=== PATIENT | female | born 1955 ===

== ENCOUNTER 2025-09-05 15:48 | Inpatient (IN) | payer MEDICARE, SELFPAY ==
[2025-09-05] VITALS (10 sets, daily range): BP systolic 110–131; BP diastolic 50–65; PULSE 72–121; RESP 16–22; TEMP 36.2–37.1; O2SAT 91–100; BMI 51.4; BMI 52.2
--- NOTE | ~2025-09-05 | CT_ITS ---
CLINICAL HISTORY: abdominal pain CT abdomen and pelvis without contrast Comparison: None provided Findings: Mild patchy bibasilar parenchymal densities. Cardiomegaly. Suggestion of very minimal liver surface nodularity. Spleen, adrenal glands, pancreas, are unremarkable. Cholecystectomy. No renal, ureteral or bladder calculi. No hydronephrosis. Mild bilateral perinephric fat stranding. Hysterectomy. Calcified but nonaneurysmal abdominal aorta. Nondistended stomach. Normal caliber small bowel. No obstruction. Colon appears unremarkable. Normal appendix. No free air. No free fluid. Few scattered borderline prominent bilateral inguinal lymph nodes. Moderate generalized body wall edema. Increased stranding throughout central abdominal mesentery. No acute osseous abnormality. No lytic or sclerotic osseous lesions. Moderate multilevel degenerative changes throughout visualized thoracolumbar spine. Small fat containing ventral abdominal hernia. Impression: 1. Moderately extensive body wall edema. Cellulitis is thought to be less likely however not completely excluded. 2. Suggestion of mild liver surface nodularity, suboptimally evaluated on this noncontrast exam however possibility of developing cirrhosis may be considered. Consider correlation with liver function tests. 3. Mild increased stranding throughout central abdominal mesentery likely edema possibly secondary to the above. 4. Cholecystectomy and hysterectomy. 5. Additional findings as above. This document has been electronically signed by: Juliann Dukes MD on 09/07/2025 11:14:02
--- NOTE | ~2025-09-05 | XR_ITS ---
EXAMINATION: XR CHEST CLINICAL INFORMATION: dyspnea, tachycardia COMPARISON: None available. TECHNIQUE: 2 views of the chest were obtained. FINDINGS: The lungs are symmetrically expanded. Central vascular prominence, interstitial prominence. No focal consolidation. No pneumothorax. No pleural effusions. Enlarged cardiomediastinal silhouette.. No acute osseous abnormalities. XR/XR chest 2V IMPRESSION: Vascular prominence and interstitial prominence suggesting mild pulmonary edema. Electronically signed by: Johnson Palm MD 09/05/2025 04:17 PM EDT
--- NOTE | 2025-09-05 15:55 | ED.GENADULT ---
HPI - General Adult General Chief complaint: Dyspnea Stated complaint: SOB; low oxygen level Time Seen by Provider: 09/05/25 16:32 History of Present Illness ED Provider: Dr. Bishop HPI narrative: 70 y/o F patient; PMH COPD on baseline 3L NC, CHF on Lasix 40mg daily, hx PE on eliquis, HTN, T2DM, HLD; presents from the ICU as a rapid response. The patient was visiting her daughter in the ICU when her oxygen ran out. She was found to be wheezing and tachycardic. Oxygen was in the low 70s. Transitioned to the emergency department for further evaluation. The patient otherwise denies: fever or chills, nausea/vomiting, diarrhea, chest pain. Reports a 22lb weight gain in the last 6 weeks. Increased lower extremity swelling. Flew from [place] last night to visit daughter in the ICU. Related Data Allergies Allergy/AdvReac Type Severity Reaction Status Date / Time No Known Allergies Allergy Verified 09/05/25 15:57 Review of Systems Review of Systems: Yes all other systems are reviewed and are negative [facility] Past Medical History Attestation statement: The following information was validated with the patient. Source: unable to obtain Social History Social History Do you have a plan to hurt others: No Plan Physical Exam ED Vital Signs: Vital Signs - 24 hr 09/05/25 15:52 09/05/25 16:57 09/05/25 17:22 Temperature 98.7 F Pulse Rate 120 H 121 H Respiratory Rate 22 H 22 H Blood Pressure 122/65 116/50 L Pulse Oximetry 98 Oxygen Delivery Method Nasal Cannula BMI result Body Mass Index 51.4 Patient is afebrile, tachycardic, normotensive Const General: cooperative HENMT Head: Yes normal to inspection and Yes atraumatic Eyes General: appearance normal, both eyes and all related structures Pupils: Equal, round and reactive pupils present EOM: EOMs intact bilaterally Neck Neck: Yes normal visual inspection, Yes supple and No tender Chest Chest palpation & inspection: normal inspection of the chest and normal palpation of entire chest wall Resp Other: Diminished bilaterally, faint end expiratory wheezing Cardio Other: tachycardia, regular rhythm, 2+ bilateral pitting edema in lower extremities GI Inspection: Yes normal to inspection, No Abdominal wall edema and No distended Palpation (GI): Soft to palpation, not firm, nontender, no guarding and not rigid Auscultation: normal bowel sounds Back/Spine/Pelvis Back: No back tenderness Neuro Cranial nerves: Yes Equal, round and reactive pupils present Course Course Course Narrative: This is a rapid medical exam performed by Yuliet White NP: Additional HPI, ROS, PE not included below will be deferred to primary provider. Patient is a 70y/o F with pmhx of COPD brought to the ED after rapid response was called. She was visiting her daughter in the ICU, O2 tank ran out. At the time of the RR, O2 sat reported to be 79%, improved to 99% on 3lpm. Complaining of epigastric pain and back pain. Plan: EKG, labs, CXR Reevaluation(s) Reevaluation #1: Requested patient be brought back to a room after receiving EKG. EKG independently interpreted by myself as ST 121BPM with + LBBB. No prior for comparison. Patient is tachycardic and tachypnic, but maintaining saturation on home 3L NC. CXR notable for mild pulmonary edema. Labs reviewed. No significant leukocytosis. Hgb 9, no baseline for comparison however MCV is 74.8, likely microcytic in nature. VBG is unremarkable without acidosis. por-BNP is quite elevated, no prior to compare to. Troponin 24.3, suspect demand. Magnesium 1.5, supplementing Cr 1.04. Placed on bronchodilator protocol. Provided 40mg IV Lasix. Plan: Admit to hospital Condition: Stable Medications Administered Generic Name Dose Route Start Last Admin Trade Name Freq PRN Reason Stop Dose Admin Magnesium Sulfate 2 gm in 50 mls @ 25 mls/hr 09/05/25 17:27 09/05/25 17:31 Magnesium Sulfate/H2o IV 09/05/25 19:26 25 mls/hr ONCE ONE Administration Discontinued Medications Generic Name Dose Route Start Last Admin Trade Name Freq PRN Reason Stop Dose Admin Albuterol Sulfate 5 mg/ 0 mg 09/05/25 16:45 09/05/25 16:49 Albuterol/Ipratropium 3 ml INHALE 09/05/25 16:46 3 each ONCE ONE Administration Furosemide 40 mg 09/05/25 16:52 09/05/25 17:22 Furosemide 40 Mg/4 Ml Vial IVPUSH 09/05/25 16:53 40 mg ONCE ONE Administration Protocol Medical Decision Making Lab Data 09/05/25 16:26 09/05/25 16:26 Labs: Lab Results 09/05/25 09/05/25 Range/Units 16:26 16:33 WBC 7.8 (4.8-10.8) X10*3/uL RBC 4.40 (4.20-5.50) X10*6/uL Hgb 9.0 L (12.0-16.0) g/dl Hct 32.9 L (37.0-47.0) % MCV 74.8 L (80.0-98.0) fL MCH 20.5 L (27.0-33.0) pg MCHC 27.4 L (31.0-35.0) g/dl RDW 21.2 H (11.0-16.0) % Plt Count 258 (160-400) X10*3/uL MPV 9.0 L (9.4-12.3) fL Immature Gran % (Auto) 0.4 (0.0-0.4) % Neut % (Auto) 75.0 H (45-73) % Lymph % (Auto) 12.1 L (20-40) % [place] % (Auto) 8.5 (2-11) % Eos % (Auto) 3.2 (0-4) % Baso % (Auto) 0.8 (0-2) % Lymph # (Auto) 0.9 L (1.2-4.9) X10*3/uL [place] # (Auto) 0.7 (0.1-1.2) X10*3/uL Eos # (Auto) 0.3 (0.0-0.4) X10*3/uL Baso # (Auto) 0.1 (0.0-0.2) X10*3/uL Abs Immat Gran (auto) 0.03 (0.00-0.03) X10*3/uL Absolute Neuts (auto) 5.9 (2.0-8.3) x10*3/uL Absolute Nucleated RBC 0.000 (0.0-0.012) X10*3/uL Nucleated RBC % (auto) 0.0 (0.0-0.2) /100WBC PT 17.4 H (10.9-12.4) SEC INR 1.5 H (0.9-1.1) VBG pH 7.40 (7.32-7.43) VBG pCO2 40 mmHg VBG pO2 57 mmHg VBG HCO3 25 (22-26) mmol/L VBG O2 Saturation 83.0 % VBG Base Excess 1.0 mmol/L Sodium 137 (135-145) mmol/L Potassium 4.5 (3.3-5.1) mmol/L Chloride 103 (96-108) mmol/L Carbon Dioxide 26 (22-29) mmol/L Anion Gap 13 (12-20) BUN 14 (9-16) mg/dL Creatinine 1.04 (0.5-1.4) mg/dL Estim Creat Clear Calc 62.0 Estimated GFR 52 Random Glucose 133 H (60-115) mg/dL Calcium 8.7 (8.4-10.2) mg/dL Magnesium 1.5 L (1.6-2.6) mg/dL Total Bilirubin 0.4 (0.0-1.0) mg/dL AST 18 (5-31) U/L ALT 6 (0-31) U/L Alkaline Phosphatase 92 (39-117) U/L Troponin I High Sens 24.3 H (<3.5-17.0) ng/L NT-Pro-B Natriuret Pep 4806.6 H (<300) pg/mL Total Protein 6.5 (6.5-8.0) g/dL Albumin 3.8 (3.5-5.0) g/dL Lipase 23 (8-78) U/L Radiology Impression Discussion of test interpretation with radiology: I have reviewed the radiologist's reading. Radiologist Impression: EXAMINATION: XR CHEST CLINICAL INFORMATION: dyspnea, tachycardia COMPARISON: None available. TECHNIQUE: 2 views of the chest were obtained. FINDINGS: The lungs are symmetrically expanded. Central vascular prominence, interstitial prominence. No focal consolidation. No pneumothorax. No pleural effusions. Enlarged cardiomediastinal silhouette.. No acute osseous abnormalities. XR/XR chest 2V IMPRESSION: Vascular prominence and interstitial prominence suggesting mild pulmonary edema. Electronically signed by: Johnson Palm MD 09/05/2025 04:17 PM EDT RP Critical Care Time Critical Care Time Critical Care Time: Yes Total Critical Care Time: 38 Attestation: Total critical care time: Approximately?38?minutes Due to a high probability of clinically significant, life threatening deterioration, the patient required my highest level of preparedness to intervene emergently and I personally spent this critical care time directly and personally managing the patient. This critical care time included obtaining a history; examining the patient; pulse oximetry; ordering and review of studies; arranging urgent treatment with development of a management plan; evaluation of patient's response to treatment; frequent reassessment; and, discussions with other providers. This critical care time was performed to assess and manage the high probability of imminent, life-threatening deterioration that could result in multi-organ failure. It was exclusive of separately billable procedures and treating other patients. Discharge Plan Discharge Clinical Impression: Congestive heart failure Patient Disposition: Admitted As Inpatient Print Language: Greenlandic
--- NOTE | 2025-09-05 15:58 | ECG_ITS ---
Test Reason : dyspnea, tachy Blood Pressure : */* mmHG Vent. Rate : 121 BPM Atrial Rate : 121 BPM P-R Int : 192 ms QRS Dur : 158 ms QT Int : 382 ms P-R-T Axes : * -57 65 degrees QTcB Int : 542 ms Sinus tachycardia Left axis deviation Left bundle branch block Abnormal ECG No previous ECGs available Referred By: Leni White Electronically Signed By: MARINE VALDIVIA MD
[2025-09-05 16:33] LABS: MANUAL DIFF FLAG NO
[2025-09-05 16:35] LABS: Hematocrit 32.9 % (37.0-47.0); Hemoglobin 9.0 g/dl (12.0-16.0); Imm Gran Abs Auto 0.03 X10*3/uL (0.00-0.03); Imm Gran Pct Auto 0.4 % (0.0-0.4); Lymphocytes Absolute Auto 0.9 X10*3/uL (1.2-4.9); Mean Corpuscular HGB Conc 27.4 g/dl (31.0-35.0); Mean Corpuscular Hemoglobin 20.5 pg (27.0-33.0); Mean Corpuscular Volume 74.8 fL (80.0-98.0); NRBC Abs Auto 0.000 X10*3/uL (0.0-0.012); NRBC Pct Auto 0.0 /100WBC (0.0-0.2); Platelet Count 258 X10*3/uL (160-400); Red Blood Count 4.40 X10*6/uL (4.20-5.50); White Blood Count 7.8 X10*3/uL (4.8-10.8)
[2025-09-05 16:37] LABS: Venous Blood Gas Refer to POC result
[2025-09-05 16:39] LABS: VBG HCO3 25 mmol/L (22-26); VBG O2 % Saturation 83.0 %
[2025-09-05 16:48] LABS: INTERNATIONAL NORM RATIO 1.5 (0.9-1.1); Prothrombin Time 17.4 SEC (10.9-12.4)
[2025-09-05] MEDS: Albuterol Sulfate 5 MG, Albuterol/Iprat 2.5/0.5MG 3 ML 3 ML INHALE (16:49)
[2025-09-05 16:54] LABS: NT Pro B Type Natriuretic Pept 4806.6 pg/mL (<300)
[2025-09-05 17:14] LABS: Troponin-I High Sensitivity 24.3 ng/L (<3.5-17.0)
[2025-09-05 17:22] LABS: Alanine Aminotransferase 6 U/L (0-31); Albumin Level 3.8 g/dL (3.5-5.0); Alkaline Phosphatase 92 U/L (39-117); Anion Gap 13 (12-20); Aspartate Amino Transferase 18 U/L (5-31); Blood Urea Nitrogen 14 mg/dL (9-16); Calcium 8.7 mg/dL (8.4-10.2); Carbon Dioxide 26 mmol/L (22-29); Chloride 103 mmol/L (96-108); Creatinine Clr Calc Pharmacy 62.0; Estimated Glomerular Filt Rate 52; Lipase 23 U/L (8-78); Magnesium 1.5 mg/dL (1.6-2.6); Potassium 4.5 mmol/L (3.3-5.1); Sodium 137 mmol/L (135-145); Total Protein 6.5 g/dL (6.5-8.0)
[2025-09-05] MEDS: Furosemide 40 MG/4 ML VIAL IVPUSH (17:22)
[2025-09-05] MEDS: Magnesium Sulfate/H2O 2 GM/50 ML PIGGYBACK IV (17:31)
--- NOTE | 2025-09-05 18:41 | PM.IMHP ---
History of Present Illness Date of Service: 09/05/25 Chief Complaint: shortness of breath 70-year-old female with a history of COPD (on baseline 3L nasal cannula), congestive heart failure (on Lasix 40 mg daily), prior pulmonary embolism (on Eliquis), hypertension, type 2 diabetes mellitus, and hyperlipidemia, presented as a rapid response while visiting her sick daughter in the ICU. Her oxygen supply ran out, and she was found to be wheezing, coughing, and tachycardic, with oxygen saturation of 78%. She was transferred to the emergency department for further evaluation after an [employer] STOCK CLERK The patient reported baseline shortness of breath but denied chest pain. She noted a 22-pound weight gain over the past six weeks and increased lower extremity swelling. Emergency department workup revealed sodium 133, magnesium 1.5, troponin I 24, pro-BNP 4806, and creatinine 1.004. Chest X-ray showed pulmonary edema. ECG demonstrated sinus tachycardia without acute ischemic changes. In the ED, she was treated with intravenous Lasix and magnesium replacement. Review of Systems Review of Systems: Constitutional:?No fever or chills reported Cardiovascular:?No chest pain, palpitations Respiratory:?Baseline shortness of breath, increased cough, wheezing GI:?No nausea, vomiting, or abdominal pain :?No dysuria Neuro:?No focal deficits Extremities:?Increased lower extremity swe Yes all other systems are reviewed and are negative [facility] Social History Household Members: Friend(s) Housing: House Patient Tobacco Use Status: Never used Tobacco Currently Displaying Signs/Symptoms of Drug Intoxication Withdrawal: No Have you been hit, kicked, punched, or otherwise hurt by someone within the past year? If so, by whom?: No Are you made to feel afraid or neglected: No Advance Directives: No Advance Directives Information Provided: Yes Do you have a plan to hurt others: No Plan Recently lost weight without trying: Yes How much weight loss: 14-23 pounds Eating poorly because of decreased appetite: No Nutrition screen score: 4 Patient : No service: No Meds Allergies Allergy/AdvReac Type Severity Reaction Status Date / Time No Known Allergies Allergy Verified 09/05/25 15:57 Active Medications: Current Medications Acetaminophen (Acetaminophen 325 Mg Tablet) 650 mg PO Q6H PRN PRN Reason: Pain, Mild 1-3,fever,headache Calcium Carbonate (Calcium Carbonate 750 Mg Tab.Chew) 750 mg PO Q4H PRN PRN Reason: Heartburn Enoxaparin Sodium (Enoxaparin Sodium 40 Mg/0.4 Ml Syringe) 40 mg SUBCUT DAILY [facility] Magnesium Sulfate (Magnesium Sulfate/H2o) 2 gm in 50 mls @ 25 mls/hr IV ONCE ONE Stop: 09/05/25 19:26 Last Admin: 09/05/25 17:31 Dose: 25 mls/hr Magnesium Hydroxide (Milk Of Magnesia 30 Ml Oral.Susp) 30 ml PO DAILY PRN PRN Reason: Constipation Melatonin (Melatonin 3 Mg Tablet) 6 mg PO BEDTIME PRN PRN Reason: Insomnia Ondansetron HCl (Ondansetron Hcl 4 Mg/2 Ml Vial) 4 mg IVPUSH Q8H PRN PRN Reason: Nausea and Vomiting Polyethylene Glycol (Polyethylene Glycol 3350 17 Gm Powd.Pack) 17 gm PO DAILY PRN PRN Reason: Constipation Sodium Chloride (0.9 % Sodium Chloride Flush 3 Ml Syringe) 3 ml IVFLUSH QSHIFT [facility] Home Medications ?Medication ?Instructions ?Recorded ?Confirmed ?Last Taken ?Type alprazolam 0.5 mg tablet (Xanax) 0.5 mg PO BID 09/05/25 09/05/25 09/05/25 History apixaban 5 mg tablet (Eliquis) 5 mg PO BID 09/05/25 09/05/25 09/05/25 History aspirin 81 mg tablet 81 mg PO DAILY 09/05/25 09/05/25 09/05/25 History furosemide 40 mg tablet (Lasix) 40 mg PO BID 09/05/25 09/05/25 09/05/25 History glimepiride 4 mg tablet 4 mg PO BID 09/05/25 09/05/25 09/05/25 History hydralazine 10 mg tablet 60 mg PO BID 09/05/25 09/05/25 09/05/25 History losartan 100 mg tablet 100 mg PO DAILY 09/05/25 09/05/25 09/05/25 History sertraline 25 mg tablet (Zoloft) 25 mg PO DAILY 09/05/25 09/05/25 09/05/25 History simvastatin 20 mg tablet 20 mg PO DAILY 09/05/25 09/05/25 09/05/25 History sitagliptin phosphate 50 1 tab PO BID 09/05/25 09/05/25 09/05/25 History mg-metformin 1,000 mg tablet (Sammie) Physical Exam Vital Signs and Narrative: Vital Signs: Last Vital Signs Temp 98 F 09/05/25 18:00 Pulse 91 09/05/25 18:00 Resp 21 H 09/05/25 18:00 BP 131/61 09/05/25 18:00 Pulse Ox 91 L 09/05/25 18:00 O2 Del Method Nasal Cannula 09/05/25 18:00 Oxygen Flow Rate 3 09/05/25 15:52 BMI result Body Mass Index 51.4 Const: Other: General:?Alert, in mild respiratory distress HEENT:?No JVD Cardiac:?Tachycardic, regular rhythm, no murmurs Respiratory:?Wheezing, decreased breath sounds, mildincreased work of breathing, rales at bases Abdomen:?Soft, non-tender Extremities:?2+ pitting edema bilateral lower extremities Neuro:?No focal deficits Results Labs 09/06/25 06:15 09/06/25 06:15 Labs: Laboratory Results - last 24 hr 09/05/25 09/05/25 16:26 16:33 MCV 74.8 L MCH 20.5 L MCHC 27.4 L RDW 21.2 H Plt Count 258 MPV 9.0 L Immature Gran % (Auto) 0.4 Neut % (Auto) 75.0 H Lymph % (Auto) 12.1 L [place] % (Auto) 8.5 Eos % (Auto) 3.2 Baso % (Auto) 0.8 Lymph # (Auto) 0.9 L [place] # (Auto) 0.7 Eos # (Auto) 0.3 Baso # (Auto) 0.1 Abs Immat Gran (auto) 0.03 Absolute Neuts (auto) 5.9 Absolute Nucleated RBC 0.000 Nucleated RBC % (auto) 0.0 PT 17.4 H INR 1.5 H VBG pH 7.40 VBG pCO2 40 VBG pO2 57 VBG HCO3 25 VBG O2 Saturation 83.0 VBG Base Excess 1.0 Anion Gap 13 Estim Creat Clear Calc 62.0 Estimated GFR 52 Random Glucose 133 H Calcium 8.7 Magnesium 1.5 L Total Bilirubin 0.4 AST 18 ALT 6 Alkaline Phosphatase 92 Troponin I High Sens 24.3 H NT-Pro-B Natriuret Pep 4806.6 H Total Protein 6.5 Albumin 3.8 Lipase 23 Imaging Radiologist's Impressions: Impressions Chest X-Ray 09/05/25 16:08 IMPRESSION: Vascular prominence and interstitial prominence suggesting mild pulmonary edema. Electronically signed by: Johnson Palm MD 09/05/2025 04:17 PM EDT RP Assessment and Plan (1) Congestive heart failure: Status: Acute Plan 70-year-old female with significant cardiopulmonary comorbidities presenting with acute hypoxemia, respiratory distress, and evidence of volume overload (weight gain, lower extremity edema, pulmonary edema on CXR, elevated pro-BNP). She also has electrolyte abnormalities (hyponatremia, hypomagnesemia) and an elevated troponin, likely secondary to demand ischemia in the setting of acute decompensated heart failure and hypoxemia. Plan: Acute on chronic hypoxemic respiratory failure d/t underlying copd and heart failure Supplemental oxygen to maintain SpO? > 92% Monitor for respiratory fatigue or need for higher-level respiratory support Acute decompensated heart failure--type unknown IV Lasix for diuresis, monitor urine output and electrolytes Daily weights, strict I/O Get echo tomorrow cardiology evaluation COPD no exacerbation Continue home inhalers or Nebs PRn Electrolyte abnormalities Magnesium replacement Monitor sodium and renal function Elevated troponin Likely demand ischemia; monitor for chest pain or ECG changes Cardiology consult if indicated DVT prophylaxis /historyo f PE Continue Eliquis Diabetes and hypertension management Continue home medications as appropriate once med rec done Monitor blood glucose and blood pressure, SSI Morbid obesity weight loss advise Code status Full code Disposition Admit to Med-tele DVT Prophylaxis: continue Eliquis for history of PE. If anticoagulation is held, initiate mechanical prophylaxis with sequential compression devices (SCDs). Code Status: Full code Indication for Admission: Acute hypoxemic respiratory failure and decompensated heart failure requiring intravenous diuresis, supplemental oxygen, and close monitoring will need at least 2 midnight stay Quality Stroke Does the patient have a stroke diagnosis?: No VTE Prior VTE?: Yes VTE Risk Level:: Medical - moderate - high VTE Device Contraindication: Treatment Not Indicated VTE Drug Contraindication: N/A - Med Ordered
--- NOTE | 2025-09-05 19:09 | PHA.MEDREC ---
Pharmacy Consult ? Medication Reconciliation Pharmacy has completed the medication reconciliation. Spoke to patient and family at bedside to confirm med list. Family states patient just got here from [place] and fill all her medications there. Patient had a list of medications with her. Utilized list from patient, however could not confirm with patient pharmacy. Patient states she had all her morning medications today.
[2025-09-05 21:08] LABS: Glucose, Whole Blood 146 mg/dL (60-115)
[2025-09-06] VITALS (9 sets, daily range): BP systolic 90–124; BP diastolic 51–60; PULSE 70–89; RESP 16–20; TEMP 36.1–37.2; O2SAT 93–100
[2025-09-06 06:45] LABS: MANUAL DIFF FLAG NO
[2025-09-06 06:52] LABS: Hematocrit 33.4 % (37.0-47.0); Hemoglobin 9.1 g/dl (12.0-16.0); Imm Gran Abs Auto 0.02 X10*3/uL (0.00-0.03); Imm Gran Pct Auto 0.3 % (0.0-0.4); Lymphocytes Absolute Auto 1.3 X10*3/uL (1.2-4.9); Mean Corpuscular HGB Conc 27.2 g/dl (31.0-35.0); Mean Corpuscular Hemoglobin 20.4 pg (27.0-33.0); Mean Corpuscular Volume 74.7 fL (80.0-98.0); NRBC Abs Auto 0.000 X10*3/uL (0.0-0.012); NRBC Pct Auto 0.0 /100WBC (0.0-0.2); Platelet Count 293 X10*3/uL (160-400); Red Blood Count 4.47 X10*6/uL (4.20-5.50); White Blood Count 7.5 X10*3/uL (4.8-10.8)
--- NOTE | 2025-09-06 07:00 | CA_ITS ---
Transthoracic Echocardiogram Patient (Last, First, Middle): William Carr, Gender: Female Date of : 1955 Age: 70 Procedure Date: 09/06/2025 Procedure Type: Transthoracic Echocardiogram Location: [facility] – [place] Height: 154.94 cm Weight: 125.19 kg BSA: 2.17 m2 Heart Rate: 78 bpm BP: 118 / 56 mmHg Cloth Finisher: ANA MARIA Referring MD: Casa Sandoval MD Mental Health Unit Lead Psychologist: Claus Collier MD Symptoms: heart failure Study Quality: Adequate w/Contrast ECG Rhythm: Sinus Conclusions: - 1. Mildly dilated LV with severely reduced LV ejection fraction at 30% with grade 2 diastolic dysfunction with mild LVH 2. Moderately dilated right-sided chambers with preserved RV systolic function 3. Moderate left atrial enlargement next 4. Cardiac valvular Dopplers within normal limits 5. Moderately elevated right ventricular systolic pressure with significantly elevated right atrial pressures Findings Procedure Information Contrast agent, definity, is being given per protocol without apparent complications. Left Ventricle Mildly increased left ventricular cavity size. There is mildly increased left ventricular wall thickness. The left ventricular systolic function is severely decreased. The visually estimated ejection fraction is between 25 30%. There is paradoxical septal motion consistent with a left bundle branch block. Spectral Doppler is indicative of a pseudonormal filling pattern. E/E prime ratio is >15, consistent with elevated filling pressures. Evidence suggests grade II (moderate) diastolic dysfunction. Right Ventricle Moderately increased right ventricular cavity size. There is normal right ventricular systolic function. Atria The left atrium is moderately dilated. Interatrial shunt cannot be excluded. The right atrium is moderately dilated. Aortic Valve The aortic valve structure and function is likely normal. There is no aortic valve stenosis. There is no aortic valve regurgitation. Mitral Valve Normal mitral valve structure and function. There is trace mitral valve regurgitation. There is no mitral valve stenosis. Pulmonic Valve The pulmonic valve is likely normal. There is no pulmonic valve regurgitation. Tricuspid Valve Likely normal tricuspid valve structure and function. There is mild tricuspid valve regurgitation. Significantly elevated right atrial pressure. Moderate pulmonary hypertension is present. Great Vessels The aorta was not well visualized. The pulmonary artery was not well visualized. Venous The inferior vena cava is moderately dilated and does not collapse with inspiration. Pericardium/Pleural The pericardium was not well visualized. Prior Study Comparison No prior study available for comparison. Measurements 2D Linear Measurements IVSd: 1.25 0.6-0.9/0.6-1.0 cm LVIDd: 5.96 3.9-5.3/4.2-5.9 cm LVIDd Index: 2.75 2.4-3.2/2.2-3.1 cm/m2 LVIDs: 5.17 2.0-3.6 cm LVPWd: 1.23 0.7-1.1 cm Ao Root: 2.90 2.1-3.5 cm LA Diam: 4.40 2.7-3.8/3.0-4.0 cm LAIDs Index: 2.03 1.5-2.3 cm/m2 LV Mass: 405.08 67-162/88-224 g LV Mass Index: 186.67 43-95/49-115 g/m2 LVOT Diam: 2.00 3.0+(-)1.3 cm 2D Systolic Function EF 4C: 28.20 >55% EF 2C: 27.10 >55% EF BiP: 26.20 >55% Mitral Valve MV VTI: 0.38 MV Pk Monty: 1.32 MV Mn Monty: 0.81 MV Pk Grad: 7.00 MV Mn Grad: 3.00 MV Pk E: 0.53 MV PK A: 1.14 MV Decel Time: 186.00 E/A: 0.50 E'Lateral: 7.62 E'Medial: 4.68 E/E' Med: 11.30 E/E' Lat: 7.00 PHT: 55.00 MVA PHT: 4.00 MVA Continuity: 1.80 [place]: 5.24 Aortic Valve AoV Pk Monty: 2.30 AoV Mn Monty: 1.55 AoV VTI: 0.47 AoV Pk Grad: 21.00 Aov Mn Grad: 11.00 FADI Cont.VTI: 1.46 LVOT LVOT Pk Monty: 1.04 LVOT Mn Monty: 0.73 LVOT VTI: 0.22 LVOT Pk Grad: 4.00 LVOT Mn Grad: 3.00 LVOT Diam: 2.00 LVOT Area: 3.14 Diastolic Function MV Pk E: 0.53 MV Pk A: 1.14 E/A: 0.50 E'Medial: 4.68 E/E' Med: 11.30 E' Laterial: 7.62 E/E' Lat: 7.00 Right Ventricle TAPSE (mm): 19.30 TVS' Monty: 8.38 Tricuspid Valve TR Pk Monty: 3.28 TR Pk Grad: 43.00 RA Press: 15.00 RVSP: 58.00 Great Vessels Aorta Ao Root-2D: 2.90 2.0-3.7 cm Ao Asc: 3.20 2.1-3.4 cm Pulmonary Valve PV Pk Monty: 1.26 Peak PV Grad: 6.00 Updated in Other Vendor System with Status of Final Claus Collier MD electronically signed on 09/06/2025 10:53:38 AM with status of Final
[2025-09-06 07:05] LABS: Alanine Aminotransferase 7 U/L (0-31); Albumin Level 4.2 g/dL (3.5-5.0); Alkaline Phosphatase 103 U/L (39-117); Anion Gap 12 (12-20); Aspartate Amino Transferase 20 U/L (5-31); Blood Urea Nitrogen 15 mg/dL (9-16); Calcium 9.1 mg/dL (8.4-10.2); Carbon Dioxide 27 mmol/L (22-29); Chloride 100 mmol/L (96-108); Creatinine Clr Calc Pharmacy 63.8; Estimated Glomerular Filt Rate 54; Potassium 4.0 mmol/L (3.3-5.1); Sodium 135 mmol/L (135-145); Total Protein 7.1 g/dL (6.5-8.0)
[2025-09-06 07:32] LABS: Glucose, Whole Blood 116 mg/dL (60-115)
[2025-09-06] MEDS: 0.9 % Sodium Chloride Flush 3 ML SYRINGE IVFLUSH ×2 (09:12→17:32)
[2025-09-06] MEDS: Aspirin Enteric Coated 81 MG TABLET.DR PO (09:12)
[2025-09-06] MEDS: Furosemide 40 MG/4 ML VIAL IVPUSH ×2 (09:44→17:31)
[2025-09-06] MEDS: Sacubitril/Valsartan 24/26 1 TAB TABLET PO ×2 (09:44→19:57)
--- NOTE | 2025-09-06 10:50 | MHC.CM.PN ---
CM met with Patient and several family members at bedside; Daughter/Alyssa provided most of the information, at Patient's preference. Patient is visiting from [place] where she lives with a Roommate and uses home O2 PRN. At dc, Patient will stay at her Granddaughter's Home;CM has initiated and will follow for dc planning.Family is unsure of the name of Patient's PCP in [place]. Daughter will transport at time of dc.
--- NOTE | 2025-09-06 11:02 | HO.PM.IMPN ---
Subjective Subjective Date of Service: 09/06/25 Interval History: Follow-up on heart failure Interval improvement in symptoms. Hypoxia resolved Echocardiogram show ejection fraction of about 30% Physical Exam Vital Signs: Vital Signs: Last Vital Signs Temp 98.4 F 09/06/25 07:15 Pulse 73 09/06/25 07:15 Resp 16 09/06/25 07:15 BP 118/56 L 09/06/25 07:15 Pulse Ox 100 09/06/25 07:15 O2 Del Method Nasal Cannula 09/06/25 07:15 O2 Flow Rate 2 09/06/25 07:15 Oxygen Flow Rate 3 09/05/25 15:52 BMI result Body Mass Index 52.2 Const: Other: General:?Alert, in mild respiratory distress HEENT:?No JVD Cardiac:?Tachycardic, regular rhythm, no murmurs Respiratory:?Wheezing, decreased breath sounds, mildincreased work of breathing, rales at bases Abdomen:?Soft, non-tender Extremities:?2+ pitting edema bilateral lower extremities Neuro:?No focal deficits Objective Data Active Medications Acetaminophen (Acetaminophen 325 Mg Tablet) 650 mg PO Q6H PRN PRN Reason: Pain, Mild 1-3,fever,headache Last Admin: 09/06/25 05:19 Dose: 650 mg Documented By: ANIKET Alprazolam (Alprazolam 0.5 Mg Tablet) 0.5 mg PO BID [facility] Last Admin: 09/06/25 09:11 Dose: 0.5 mg Documented By: KISHAN Apixaban (Apixaban 5 Mg Tablet) 5 mg PO BID [facility] Last Admin: 09/06/25 09:11 Dose: 5 mg Documented By: KISHAN Aspirin (Aspirin Enteric Coated 81 Mg Tablet.) 81 mg PO DAILY [facility] Last Admin: 09/06/25 09:12 Dose: 81 mg Documented By: KISHAN Atorvastatin Calcium (Atorvastatin Calcium 10 Mg Tablet) 10 mg PO DAILY [facility] Last Admin: 09/06/25 09:11 Dose: 10 mg Documented By: KISHAN Calcium Carbonate (Calcium Carbonate 750 Mg Tab.Chew) 750 mg PO Q4H PRN PRN Reason: Heartburn Dextrose (Dextrose 50 % 25 Gm/50 Ml Syringe) 25 gm IVPUSH Q15M PRN; Protocol PRN Reason: per Hypoglycemia Standing Ord. Empagliflozin (Empagliflozin 10 Mg Tablet) 10 mg PO DAILY [facility] Furosemide (Furosemide 40 Mg/4 Ml Vial) 40 mg IVPUSH BID@0900,1800 [facility]; Protocol Last Admin: 09/06/25 09:44 Dose: 40 mg Documented By: KISHAN Glucose (Glucose Gel 15 Gm Gel..Gram.) 15 gm PO Q15M PRN; Protocol PRN Reason: per Hypoglycemia Standing Ord. Insulin Human Lispro (Insulin Lispro 100 Unit/Ml 3 Ml Vial) 0 unit SUBCUT QIDACHS [facility]; Protocol Last Admin: 09/06/25 08:38 Dose: Not Given Documented By: KISHAN Non-Admin Reason: No Insulin Coverage Magnesium Hydroxide (Milk Of Magnesia 30 Ml Oral.Susp) 30 ml PO DAILY PRN PRN Reason: Constipation Melatonin (Melatonin 3 Mg Tablet) 6 mg PO BEDTIME PRN PRN Reason: Insomnia Ondansetron HCl (Ondansetron Hcl 4 Mg/2 Ml Vial) 4 mg IVPUSH Q8H PRN PRN Reason: Nausea and Vomiting Polyethylene Glycol (Polyethylene Glycol 3350 17 Gm Powd.Pack) 17 gm PO DAILY PRN PRN Reason: Constipation Sacubitril/Valsartan (Sacubitril/Valsartan 1 Tab Tablet) 1 tab PO BID [facility]; Protocol Last Admin: 09/06/25 09:44 Dose: 1 tab Documented By: KISHAN Sertraline HCl (Sertraline Hcl 25 Mg Tablet) 25 mg PO DAILY [facility] Last Admin: 09/06/25 09:12 Dose: 25 mg Documented By: KISHAN Sodium Chloride (0.9 % Sodium Chloride Flush 3 Ml Syringe) 3 ml IVFLUSH QSHIFT [facility] Last Admin: 09/06/25 09:12 Dose: 3 ml Documented By: KISHAN Labs 09/06/25 06:15 09/06/25 06:15 Labs: Laboratory Results - last 24 hr 09/05/25 09/05/25 09/05/25 16:26 16:33 21:03 MCV 74.8 L MCH 20.5 L MCHC 27.4 L RDW 21.2 H Plt Count 258 MPV 9.0 L Immature Gran % (Auto) 0.4 Neut % (Auto) 75.0 H Lymph % (Auto) 12.1 L [place] % (Auto) 8.5 Eos % (Auto) 3.2 Baso % (Auto) 0.8 Lymph # (Auto) 0.9 L [place] # (Auto) 0.7 Eos # (Auto) 0.3 Baso # (Auto) 0.1 Abs Immat Gran (auto) 0.03 Absolute Neuts (auto) 5.9 Absolute Nucleated RBC 0.000 Nucleated RBC % (auto) 0.0 PT 17.4 H INR 1.5 H VBG pH 7.40 VBG pCO2 40 VBG pO2 57 VBG HCO3 25 VBG O2 Saturation 83.0 VBG Base Excess 1.0 Anion Gap 13 Estim Creat Clear Calc 62.0 Estimated GFR 52 POC Glucose 146 H Random Glucose 133 H Calcium 8.7 Magnesium 1.5 L Total Bilirubin 0.4 AST 18 ALT 6 Alkaline Phosphatase 92 Troponin I High Sens 24.3 H NT-Pro-B Natriuret Pep 4806.6 H Total Protein 6.5 Albumin 3.8 Lipase 23 09/06/25 09/06/25 06:15 07:28 MCV 74.7 L MCH 20.4 L MCHC 27.2 L RDW 21.1 H Plt Count 293 MPV 9.4 Immature Gran % (Auto) 0.3 Neut % (Auto) 68.7 Lymph % (Auto) 17.2 L [place] % (Auto) 9.3 Eos % (Auto) 3.7 Baso % (Auto) 0.8 Lymph # (Auto) 1.3 [place] # (Auto) 0.7 Eos # (Auto) 0.3 Baso # (Auto) 0.1 Abs Immat Gran (auto) 0.02 Absolute Neuts (auto) 5.2 Absolute Nucleated RBC 0.000 Nucleated RBC % (auto) 0.0 PT INR VBG pH VBG pCO2 VBG pO2 VBG HCO3 VBG O2 Saturation VBG Base Excess Anion Gap 12 Estim Creat Clear Calc 63.8 Estimated GFR 54 POC Glucose 116 H Random Glucose 114 Calcium 9.1 Magnesium Total Bilirubin 0.5 AST 20 ALT 7 Alkaline Phosphatase 103 Troponin I High Sens NT-Pro-B Natriuret Pep Total Protein 7.1 Albumin 4.2 Lipase Assessment and Plan (1) Congestive heart failure: Status: Acute (2) Diabetes: Status: Acute Plan 70-year-old female with significant cardiopulmonary comorbidities presenting with acute hypoxemia, respiratory distress, and evidence of volume overload (weight gain, lower extremity edema, pulmonary edema on CXR, elevated pro-BNP). She also has electrolyte abnormalities (hyponatremia, hypomagnesemia) and an elevated troponin, likely secondary to demand ischemia in the setting of acute decompensated heart failure and hypoxemia. Plan: Acute on chronic hypoxemic respiratory failure d/t underlying copd and heart failure Supplemental oxygen to maintain SpO? > 92% Monitor for respiratory fatigue or need for higher-level respiratory support Acute decompensated heart failure with reduced ejection fraction of 30% Continue IV Lasix for diuresis, monitor urine output and electrolytes Daily weights, strict I/O cardiology evaluation Starting Entresto, Jardiance, will ultimately need BB, aldactone COPD no exacerbation Continue home inhalers or Nebs PRn Electrolyte abnormalities Magnesium replacement Monitor sodium and renal function Elevated troponin Likely demand ischemia; monitor for chest pain or ECG changes Cardiology consult if indicated DVT prophylaxis /historyo f PE Continue Eliquis Diabetes and hypertension management Continue home medications as appropriate once med rec done Monitor blood glucose and blood pressure, SSI holding glimeperide and sitagliptin Morbid obesity weight loss advise Code status Full code Disposition Admit to Med-tele DVT Prophylaxis: continue Eliquis for history of PE. If anticoagulation is held, initiate mechanical prophylaxis with sequential compression devices (SCDs). Code Status: Full code Indication for Admission: Acute hypoxemic respiratory failure and decompensated heart failure requiring intravenous diuresis, supplemental oxygen, and close monitoring will need at least 2 midnight stay discussed with family at bedside Quality Stroke Does the patient have a stroke diagnosis?: No VTE Prior VTE?: Yes VTE Risk Level:: Medical - moderate - high VTE Device Contraindication: Treatment Not Indicated VTE Drug Contraindication: N/A - Med Ordered
--- NOTE | 2025-09-06 11:15 | P.CONCA_ITS ---
History of Present Illness History of Present Illness Date of Service: 09/06/25 Requesting physician: Casa Sandoval Consult reason: other (Acute respiratory failure) Chief complaint: CHF Exacerbation Narrative: I was consulted to see given her mean in cardiology consultation today as she developed acute respiratory failure. History was obtained with help of patient's granddaughter at bedside who acted as sign language interpreter. Patient is a limited historian not able to give a lot of detailed history. Patient recently came from [place] to visit her daughter who is admitted to ICU. While visiting her daughter she had became acutely short of breath as she ran out of oxygen. She was then rushed to emergency room where she was managed initially treated with BiPAP for acute hypoxemic respiratory failure subsequent diagnose with pulmonary edema on chest x-ray and with elevated BNP. On further inquiry from the patient while patient's granddaughter says patient has had congestive heart failure in [place] and has been told that she has a weak heart and she was advise implantable device placement although she has been refusing it. She says she has had 3 heart attacks in the past. She has been treated with congestive heart failure with diuretics and what appears to be losartan hydralazine at home. Her hemodynamics are stable although she has lowish blood pressure. She has overt night remained requiring oxygen and intermittently has hypoxemia. She is still appears short of breath clinically to me today. She however says that she feels fine. She has not had any overnight arrhythmias. EKGs shows left bundle-branch block. She has no significant acute myocardial ischemic event noted. She says she has been taking all her medications although over the last few weeks has gained about 20 lb. She does have significant generalized swelling. She also has history of COPD for which she is on home oxygen. Granddaughter denies her having sleep apnea or CPAP at home. Review of Systems 2 Constitutional: Constitutional: Reports daytime sleepiness, Reports fatigue, Reports lethargy and Reports snoring Eyes: Eyes: Reports no additional eye complaints Cardiovascular: Cardiovascular: Denies chest pain, Denies rapid heart rate, Reports leg edema, Denies lightheadedness, Denies Loss of Consciousness, Reports dyspnea and Reports orthopnea Respiratory: Respiratory: Reports dyspnea, Reports snoring and Reports wheezing Gastrointestinal: Gastrointestinal: Reports no additional gastrointestinal complaints Genitourinary: Genitourinary: Reports no additional female genitourinary complaints Musculoskeletal: Musculoskeletal: Reports no additional musculoskeletal complaints Integumentary/Breasts: Skin/Breast: Reports system reviewed and no additional complaints, except as docu Neurologic: Reports system reviewed and no additional complaints, except as documented Psychiatric: Psychiatric: Reports no additional psychiatric complaints Endocrine: Endocrine: Reports fatigue Allergic/Immunologic: Allergic/Immunologic: Reports wheezing [facility] Past Medical History Medical History Diabetes Social History Social History Household Members: Friend(s) Housing: House Patient Tobacco Use Status: Never used Tobacco Currently Displaying Signs/Symptoms of Drug Intoxication Withdrawal: No Have you been hit, kicked, punched, or otherwise hurt by someone within the past year? If so, by whom?: No Are you made to feel afraid or neglected: No Advance Directives: No Advance Directives Information Provided: Yes Do you have a plan to hurt others: No Plan Recently lost weight without trying: Yes How much weight loss: 14-23 pounds Eating poorly because of decreased appetite: No Nutrition screen score: 4 Patient : No service: No Meds Allergies Allergy/AdvReac Type Severity Reaction Status Date / Time No Known Allergies Allergy Verified 09/05/25 15:57 Active Medications: Current Medications Acetaminophen (Acetaminophen 325 Mg Tablet) 650 mg PO Q6H PRN PRN Reason: Pain, Mild 1-3,fever,headache Last Admin: 09/06/25 05:19 Dose: 650 mg Alprazolam (Alprazolam 0.5 Mg Tablet) 0.5 mg PO BID [facility] Last Admin: 09/06/25 09:11 Dose: 0.5 mg Apixaban (Apixaban 5 Mg Tablet) 5 mg PO BID [facility] Last Admin: 09/06/25 09:11 Dose: 5 mg Aspirin (Aspirin Enteric Coated 81 Mg Tablet.Dr) 81 mg PO DAILY [facility] Last Admin: 09/06/25 09:12 Dose: 81 mg Atorvastatin Calcium (Atorvastatin Calcium 10 Mg Tablet) 10 mg PO DAILY [facility] Last Admin: 09/06/25 09:11 Dose: 10 mg Calcium Carbonate (Calcium Carbonate 750 Mg Tab.Chew) 750 mg PO Q4H PRN PRN Reason: Heartburn Dextrose (Dextrose 50 % 25 Gm/50 Ml Syringe) 25 gm IVPUSH Q15M PRN; Protocol PRN Reason: per Hypoglycemia Standing Ord. Empagliflozin (Empagliflozin 10 Mg Tablet) 10 mg PO DAILY [facility] Furosemide (Furosemide 40 Mg/4 Ml Vial) 40 mg IVPUSH BID@0900,1800 [facility]; Protocol Last Admin: 09/06/25 09:44 Dose: 40 mg Glucose (Glucose Gel 15 Gm Gel..Gram.) 15 gm PO Q15M PRN; Protocol PRN Reason: per Hypoglycemia Standing Ord. Insulin Human Lispro (Insulin Lispro 100 Unit/Ml 3 Ml Vial) 0 unit SUBCUT QIDACHS [facility]; Protocol Last Admin: 09/06/25 08:38 Dose: Not Given Magnesium Hydroxide (Milk Of Magnesia 30 Ml Oral.Susp) 30 ml PO DAILY PRN PRN Reason: Constipation Melatonin (Melatonin 3 Mg Tablet) 6 mg PO BEDTIME PRN PRN Reason: Insomnia Ondansetron HCl (Ondansetron Hcl 4 Mg/2 Ml Vial) 4 mg IVPUSH Q8H PRN PRN Reason: Nausea and Vomiting Polyethylene Glycol (Polyethylene Glycol 3350 17 Gm Powd.Pack) 17 gm PO DAILY PRN PRN Reason: Constipation Sacubitril/Valsartan (Sacubitril/Valsartan 1 Tab Tablet) 1 tab PO BID [facility]; Protocol Last Admin: 09/06/25 09:44 Dose: 1 tab Sertraline HCl (Sertraline Hcl 25 Mg Tablet) 25 mg PO DAILY [facility] Last Admin: 09/06/25 09:12 Dose: 25 mg Sodium Chloride (0.9 % Sodium Chloride Flush 3 Ml Syringe) 3 ml [facility] Last Admin: 09/06/25 09:12 Dose: 3 ml Home Medications ?Medication ?Instructions ?Recorded ?Confirmed ?Last Taken ?Type alprazolam 0.5 mg tablet (Xanax) 0.5 mg PO BID 5 09/05/25 09/05/25 History apixaban 5 mg tablet (Eliquis) 5 mg PO BID 09/05/2509/05/25 History aspirin 81 mg tablet 81 mg PO DAILY 09/05/25 10/0 08/2209/05/25 History furosemide 40 mg tablet (Lasix) 40 mg PO BID 09/05/25 09/05/25 09/05/25 History glimepiride 4 mg tablet 4 mg PO BID 09/05/25 5 09/05/25 History hydralazine 10 mg tablet 60 mg PO BID 09/05/2509/05/25 History losartan 100 mg tablet 100 mg PO DAILY 09/05/2508/2209/05/25 History sertraline 25 mg tablet (Zoloft) 25 mg PO DAILY 09/05/25 09/05/25 History simvastatin 20 mg tablet 20 mg PO DAILY 09/05/25 1008/2209/05/25 History sitagliptin phosphate 50 1 tab PO BID 09/05/2509/05/25 History mg-metformin 1,000 mg tablet (Janumet) Physical Exam 2 Vital Signs: Vital Signs: Last Vital Signs Temp 98.9 F 09/06/25 11:07 Pulse 70 09/06/25 11:07 Resp 16 09/06/25 11:07 BP 107/51 L 09/06/25 11:07 Pulse Ox 95 09/06/25 11:07 O2 Del Method Nasal Cannula 09/06/25 11:07 O2 Flow Rate 3 09/06/25 11:07 Oxygen Flow Rate 3 09/05/25 15:52 BMI result Body Mass Index 52.2 Const: General: cooperative, in distress moderate and respiratory, tired appearing and other (Drowsy and drifts off to sleep intermittently) N utritional Appearance: obese morbidly obese Orientation/consciousness: p atient oriented x3 HEENT: Head: Yes normocephalic and Yes atraumatic Neck: Neck: Yes trachea midline, Yes supple and Yes JVD Resp: Effort & Inspection: normal respiratory effort Auscultation: crackles and wheezes Cardio: Jugular venous distension: JVD Rate: regular rate Rhythm: r egular rhythm Heart sounds: S1 normal heart sound present, S2 normal heart sound present, no click and no gallops GI: Auscultation: normal bowel sounds Skin: General skin exam: no rashes or lesions noted Neuro: General: patient oriented x3 and no focal motor deficits Extrem: General: No clubbing, No cyanosis and Yes edema Objective Labs and Meds 09/06/25 06:15 09/06/25 06:15 Lab results: Laboratory Results - last 24 hr 09/05/25 09/05/25 09/05/25 16:26 16:33 21:03 WBC 7.8 RBC 4.40 Hgb 9.0 L Hct 32.9 L MCV 74.8 L MCH 20.5 L MCHC 27.4 L RDW 21.2 H Plt Count 258 MPV 9.0 L Immature Gran % (Auto) 0.4 Neut % (Auto) 75.0 H Lymph % (Auto) 12.1 L [place] % (Auto) 8.5 Eos % (Auto) 3.2 Baso % (Auto) 0.8 Lymph # (Auto) 0.9 L [place] # (Auto) 0.7 Eos # (Auto) 0.3 Baso # (Auto) 0.1 Abs Immat Gran (auto) 0.03 Absolute Neuts (auto) 5.9 Absolute Nucleated RBC 0.000 Nucleated RBC % (auto) 0.0 PT 17.4 H INR 1.5 H VBG pH 7.40 VBG pCO2 40 VBG pO2 57 VBG HCO3 25 VBG O2 Saturation 83.0 VBG Base Excess 1.0 Sodium 137 Potassium 4.5 Chloride 103 Carbon Dioxide 26 Anion Gap 13 BUN 14 Creatinine 1.04 Estim Creat Clear Calc 62.0 Estimated GFR 52 POC Glucose 146 H Random Glucose 133 H Calcium 8.7 Magnesium 1.5 L Total Bilirubin 0.4 AST 18 ALT 6 Alkaline Phosphatase 92 Troponin I High Sens 24.3 H NT-Pro-B Natriuret Pep 4806.6 H Total Protein 6.5 Albumin 3.8 Lipase 23 09/06/25 09/06/25 06:15 07:28 WBC 7.5 RBC 4.47 Hgb 9.1 L Hct 33.4 L MCV 74.7 L MCH 20.4 L MCHC 27.2 L RDW 21.1 H Plt Count 293 MPV 9.4 Immature Gran % (Auto) 0.3 Neut % (Auto) 68.7 Lymph % (Auto) 17.2 L [place] % (Auto) 9.3 Eos % (Auto) 3.7 Baso % (Auto) 0.8 Lymph # (Auto) 1.3 [place] # (Auto) 0.7 Eos # (Auto) 0.3 Baso # (Auto) 0.1 Abs Immat Gran (auto) 0.02 Absolute Neuts (auto) 5.2 Absolute Nucleated RBC 0.000 Nucleated RBC % (auto) 0.0 PT INR VBG pH VBG pCO2 VBG pO2 VBG HCO3 VBG O2 Saturation VBG Base Excess Sodium 135 Potassium 4.0 Chloride 100 Carbon Dioxide 27 Anion Gap 12 BUN 15 Creatinine 1.02 Estim Creat Clear Calc 63.8 Estimated GFR 54 POC Glucose 116 H Random Glucose 114 Calcium 9.1 Magnesium Total Bilirubin 0.5 AST 20 ALT 7 Alkaline Phosphatase 103 Troponin I High Sens NT-Pro-B Natriuret Pep Total Protein 7.1 Albumin 4.2 Lipase Imaging Radiologist's impression: Impressions Chest X-Ray 09/05/25 16:08 IMPRESSION: Vascular prominence and interstitial prominence suggesting mild pulmonary edema. Electronically signed by: Johnson Palm MD 09/05/2025 04:17 PM EDT RP Assessment and Plan (1) Decompensated heart failure with reduced ejection fraction (HFrEF): Status: Acute Decompensated systolic heart failure in this elderly woman with multiple comorbidities underlying left bundle-branch block with severe LV systolic dysfunction by echocardiogram most likely reason for her decompensation acute hypoxemic respiratory failure in addition to COPD exacerbation as she is wheezing. I will continue with pulmonary support treatment pulmonary bronchodilators but maximize her cardiac meds switch her Lasix to IV route. Strict intake and output chart needs to be pursued. I would stop her hydralazine and switch her to Entresto in place of losartan. On Jardiance has been added. Once she is more euvolemic will add beta-sincere therapy is to her regimen. Not sure as to last LV ejection fraction [place] and how long ago it was. She may benefit from cardiac resynchronization therapy given her baseline left bundle-branch block which will need to be entertained as an outpatient. Need to maximize her guideline based medical therapy. Continue supportive oxygen. She will also need sleep study as outpatient to rule out significant sleep apnea which may be contributing to a cardiomyopathy process. She is on apixaban for prior history of pulmonary embolism that can be continued. Not sure the role of aspirin and should be discontinued if there are no obvious reasons for it as dual therapy may increase bleeding risk. Management plan was discussed with family at bedside as well as the hospitalist team Will follow with you Procedures Date of Service Date of Service: 09/06/25
[2025-09-06 11:24] LABS: Glucose, Whole Blood 125 mg/dL (60-115)
[2025-09-06 16:28] LABS: Glucose, Whole Blood 238 mg/dL (60-115)
[2025-09-06 19:55] LABS: Glucose, Whole Blood 125 mg/dL (60-115)
--- NOTE | 2025-09-06 20:10 | PC.NURSE ---
Pt went down to ICU accompanied by family to visit daughter. OK per MD Sandoval. Pt brought by w/c with 3L O2 via NC
[2025-09-07] VITALS (7 sets, daily range): BP systolic 93–142; BP diastolic 55–82; PULSE 79–142; RESP 16–17; TEMP 36.1–36.8; O2SAT 92–97
[2025-09-07] MEDS: 0.9 % Sodium Chloride Flush 3 ML SYRINGE IVFLUSH ×3 (01:10→17:51)
--- NOTE | 2025-09-07 07:52 | ECG_ITS ---
Test Reason : cp Blood Pressure : */* mmHG Vent. Rate : 142 BPM Atrial Rate : 142 BPM P-R Int : 168 ms QRS Dur : 150 ms QT Int : 304 ms P-R-T Axes : * 85 -13 degrees QTcB Int : 467 ms Possible Atrial flutter Non-specific intra-ventricular conduction block Abnormal ECG When compared with ECG of 05-Sep-2025 16:18, Vent. rate has increased Nonspecific T wave abnormality now evident in Inferior leads Referred By: Casa Sandoval Electronically Signed By: MARINE VALDIVIA MD
[2025-09-07 08:19] LABS: Glucose, Whole Blood 165 mg/dL (60-115)
[2025-09-07] MEDS: Furosemide 40 MG/4 ML VIAL IVPUSH ×2 (08:20→17:51)
[2025-09-07] MEDS: Aspirin Enteric Coated 81 MG TABLET.DR PO (08:20)
[2025-09-07] MEDS: Sacubitril/Valsartan 24/26 1 TAB TABLET PO ×2 (08:20→20:30)
--- NOTE | 2025-09-07 09:59 | P.PNIM_ITS ---
Subjective Subjective Date of Service: 09/08/25 Interval History: Follow-up on heart failure Patient c/o chest pain, headache and abdominal pain and now HR in 145 Physical Exam 2 Vital Signs: Vital Signs: Last Vital Signs Temp 98.3 F 09/07/25 08:00 Pulse 142 H 09/07/25 08:00 Resp 17 09/07/25 08:00 BP 142/82 H 09/07/25 08:00 Pulse Ox 92 09/07/25 08:00 O2 Del Method Room Air 09/07/25 08:00 O2 Flow Rate 3 09/07/25 04:00 Oxygen Flow Rate 3 09/05/25 15:52 BMI result Body Mass Index 52.2 Const: Other: General:?Alert, in mild respiratory distress HEENT:?No JVD Cardiac:?Tachycardic, regular rhythm, no murmurs Respiratory:?Wheezing, decreased breath sounds, mildincreased work of breathing, rales at bases Abdomen:?Soft, non-tender Extremities:?2+ pitting edema bilateral lower extremities Neuro:?No focal deficits Objective Data Active Medications Acetaminophen (Acetaminophen 325 Mg Tablet) 650 mg PO Q6H PRN PRN Reason: Pain, Mild 1-3,fever,headache Last Admin: 09/06/25 19:52 Dose: 650 mg Documented By: IVONNE Alprazolam (Alprazolam 0.5 Mg Tablet) 0.5 mg PO BID [facility] Last Admin: 09/07/25 08:20 Dose: 0.5 mg Documented By: MONICA Apixaban (Apixaban 5 Mg Tablet) 5 mg PO BID [facility] Last Admin: 09/07/25 08:20 Dose: 5 mg Documented By: MONICA Aspirin (Aspirin Enteric Coated 81 Mg Tablet.) 81 mg PO DAILY [facility] Last Admin: 09/07/25 08:20 Dose: 81 mg Documented By: MONIAC Atorvastatin Calcium (Atorvastatin Calcium 10 Mg Tablet) 10 mg PO DAILY [facility] Last Admin: 09/07/25 08:20 Dose: 10 mg Documented By: MONICA Calcium Carbonate (Calcium Carbonate 750 Mg Tab.Chew) 750 mg PO Q4H PRN PRN Reason: Heartburn Dextrose (Dextrose 50 % 25 Gm/50 Ml Syringe) 25 gm IVPUSH Q15M PRN; Protocol PRN Reason: per Hypoglycemia Standing Ord. Empagliflozin (Empagliflozin 10 Mg Tablet) 10 mg PO DAILY [facility] Last Admin: 09/07/25 08:20 Dose: 10 mg Documented By: MONICA Furosemide (Furosemide 40 Mg/4 Ml Vial) 40 mg IVPUSH BID@0900,1800 [facility]; Protocol Last Admin: 09/07/25 08:20 Dose: 40 mg Documented By: MONICA Glucose (Glucose Gel 15 Gm Gel..Gram.) 15 gm PO Q15M PRN; Protocol PRN Reason: per Hypoglycemia Standing Ord. Insulin Human Lispro (Insulin Lispro 100 Unit/Ml 3 Ml Vial) 0 unit SUBCUT QIDACHS [facility]; Protocol Last Admin: 09/07/25 08:52 Dose: 2 unit Documented By: MONICA Magnesium Hydroxide (Milk Of Magnesia 30 Ml Oral.Susp) 30 ml PO DAILY PRN PRN Reason: Constipation Melatonin (Melatonin 3 Mg Tablet) 6 mg PO BEDTIME PRN PRN Reason: Insomnia Ondansetron HCl (Ondansetron Hcl 4 Mg/2 Ml Vial) 4 mg IVPUSH Q8H PRN PRN Reason: Nausea and Vomiting Polyethylene Glycol (Polyethylene Glycol 3350 17 Gm Powd.Pack) 17 gm PO DAILY PRN PRN Reason: Constipation Sacubitril/Valsartan (Sacubitril/Valsartan 1 Tab Tablet) 1 tab PO BID [facility]; Protocol Last Admin: 09/07/25 08:20 Dose: 1 tab Documented By: MONICA Sertraline HCl (Sertraline Hcl 25 Mg Tablet) 25 mg PO DAILY [facility] Last Admin: 09/07/25 08:20 Dose: 25 mg Documented By: MONICA Sodium Chloride (0.9 % Sodium Chloride Flush 3 Ml Syringe) 3 ml IVFLUSH QSHIFT [facility] Last Admin: 09/07/25 08:30 Dose: 3 ml Documented By: MONICA Labs 09/08/25 08:07 09/08/25 08:07 Labs: Laboratory Results - last 24 hr 09/06/25 09/06/25 09/06/25 11:20 16:24 19:51 POC Glucose 125 H 238 H 125 H 09/07/25 08:15 POC Glucose 165 H Assessment and Plan (1) Congestive heart failure: Status: Acute (2) Diabetes: Status: Acute Plan 70-year-old female with significant cardiopulmonary comorbidities presenting with acute hypoxemia, respiratory distress, and evidence of volume overload (weight gain, lower extremity edema, pulmonary edema on CXR, elevated pro-BNP). She also has electrolyte abnormalities (hyponatremia, hypomagnesemia) and an elevated troponin, likely secondary to demand ischemia in the setting of acute decompensated heart failure and hypoxemia. Plan: Acute on chronic hypoxemic respiratory failure d/t underlying copd and heart failure Supplemental oxygen to maintain SpO? > 92% Monitor for respiratory fatigue or need for higher-level respiratory support Acute decompensated heart failure with reduced ejection fraction of 30% Continue IV Lasix for diuresis, monitor urine output and electrolytes Thus far negative 1800 Daily weights, strict I/O cardiology evaluation Starting Maria Isabel Arango, will ultimately need BB, aldactone Aflutter check electrolyes check with cardiology avoid BB for now Monitor foor hemodynamic instability alreary on eliquis, discuss with card COPD no exacerbation Continue home inhalers or Nebs PRn Electrolyte abnormalities Magnesium replacement Monitor sodium and renal function Elevated troponin Likely demand ischemia; monitor for chest pain or ECG changes Cardiology consult if indicated DVT prophylaxis /historyo f PE Continue Eliquis Diabetes and hypertension management Continue home medications as appropriate once med rec done Monitor blood glucose and blood pressure, SSI holding glimeperide and sitagliptin Morbid obesity weight loss advise Code status Full code Disposition Admit to Med-tele DVT Prophylaxis: continue Eliquis for history of PE. If anticoagulation is held, initiate mechanical prophylaxis with sequential compression devices (SCDs). Code Status: Full code Indication for Admission: Acute hypoxemic respiratory failure and decompensated heart failure requiring intravenous diuresis, supplemental oxygen, and close monitoring will need at least 2 midnight stay discussed with family at bedside Quality Stroke Does the patient have a stroke diagnosis?: No VTE Prior VTE?: Yes VTE Risk Level:: Medical - moderate - high VTE Device Contraindication: Treatment Not Indicated VTE Drug Contraindication: N/A - Med Ordered
[2025-09-07 10:08] LABS: Hematocrit 33.8 % (37.0-47.0); Hemoglobin 9.3 g/dl (12.0-16.0); Mean Corpuscular HGB Conc 27.5 g/dl (31.0-35.0); Mean Corpuscular Hemoglobin 20.4 pg (27.0-33.0); Mean Corpuscular Volume 74.3 fL (80.0-98.0); NRBC Abs Auto 0.000 X10*3/uL (0.0-0.012); NRBC Pct Auto 0.0 /100WBC (0.0-0.2); Platelet Count 305 X10*3/uL (160-400); Red Blood Count 4.55 X10*6/uL (4.20-5.50); White Blood Count 7.2 X10*3/uL (4.8-10.8)
[2025-09-07 10:39] LABS: Anion Gap 15 (12-20); Blood Urea Nitrogen 18 mg/dL (9-16); Calcium 9.1 mg/dL (8.4-10.2); Carbon Dioxide 28 mmol/L (22-29); Chloride 100 mmol/L (96-108); Creatinine Clr Calc Pharmacy 59.2; Estimated Glomerular Filt Rate 49; Potassium 4.2 mmol/L (3.3-5.1); Sodium 139 mmol/L (135-145)
[2025-09-07 11:10] LABS: Glucose, Whole Blood 160 mg/dL (60-115)
--- NOTE | 2025-09-07 11:35 | PM.PNCARD ---
Subjective Subjective Date of Service: 09/07/25 Principal diagnosis: Decompensated systolic heart failure, tachycardia possible atrial flutter Interval history: Patient complains of chest pressure this morning. Continues to be short of breath. Overall negative balance from yesterday about 1900 cc. Blood pressure is stable. Overnight noted rapid tachycardia up to 140 beats per minute with wide complex most suggestive of atrial flutter. Complains of pressure in his chest. Denies any fast heart rate. Review of Systems Constitutional: Reports no additional constitutional complaints Cardiovascular: Reports chest pain at rest, Denies rapid heart rate, Reports leg edema, Denies lightheadedness, Denies Loss of Consciousness, Reports dyspnea and Reports dyspnea on exertion Respiratory: Reports dyspnea and Reports dyspnea on exertion Gastrointestinal: Reports no additional gastrointestinal complaints Musculoskeletal: Reports no additional musculoskeletal complaints Skin/Breast: Reports system reviewed and no additional complaints, except as docu Psychiatric: Reports no additional psychiatric complaints Physical Exam Vital Signs: Last Vital Signs Temp 97.4 F 09/07/25 11:15 Pulse 100 09/07/25 11:15 Resp 17 09/07/25 11:15 BP 120/60 09/07/25 11:15 Pulse Ox 92 09/07/25 11:15 O2 Del Method Room Air 09/07/25 11:15 O2 Flow Rate 3 09/07/25 04:00 Oxygen Flow Rate 3 09/05/25 15:52 BMI result Body Mass Index 52.2 Const General: cooperative, in distress moderate and respiratory, tired appearing and other (Drowsy and drifts off to sleep intermittently) Nutritional Appearance: obese morbidly obese Orientation/consciousness: patient oriented x3 HEENT Head: Yes normocephalic and Yes atraumatic Neck Neck: Yes trachea midline, Yes supple and Yes JVD Resp Effort & Inspection: normal respiratory effort Auscultation: crackles and wheezes Cardio Jugular venous distension: JVD Rate: regular rate Rhythm: regular rhythm Heart sounds: S1 normal heart sound present, S2 normal heart sound present, no click and no gallops GI Auscultation: normal bowel sounds Skin General skin exam: no rashes or lesions noted Neuro General: patient oriented x3 and no focal motor deficits Extrem General: No clubbing, No cyanosis and Yes edema Objective Labs and Meds 09/07/25 09:49 09/07/25 09:49 Lab results: Laboratory Results - last 24 hr 09/06/25 09/06/25 09/07/25 16:24 19:51 08:15 WBC RBC Hgb Hct MCV MCH MCHC RDW Plt Count MPV Absolute Nucleated RBC Nucleated RBC % (auto) Sodium Potassium Chloride Carbon Dioxide Anion Gap BUN Creatinine Estim Creat Clear Calc Estimated GFR POC Glucose 238 H 125 H 165 H Random Glucose Lactic Acid Calcium 09/07/25 09/07/25 09/07/25 09:49 09:49 10:55 WBC 7.2 RBC 4.55 Hgb 9.3 L Hct 33.8 L MCV 74.3 L MCH 20.4 L MCHC 27.5 L RDW 21.0 H Plt Count 305 MPV 9.2 L Absolute Nucleated RBC 0.000 Nucleated RBC % (auto) 0.0 Sodium 139 Potassium 4.2 Chloride 100 Carbon Dioxide 28 Anion Gap 15 BUN 18 H Creatinine 1.10 Estim Creat Clear Calc 59.2 Estimated GFR 49 POC Glucose 160 H Random Glucose 151 H Lactic Acid 1.3 1.3 Calcium 9.1 Progress Note: A&P Assessment and plan (1) Decompensated heart failure with reduced ejection fraction (HFrEF): Status: Acute Assessment and Plan: Decompensated congestive heart failure with still significant fluid overload in this elderly woman with severe LV systolic dysfunction with left bundle-branch block. Question ischemic. Unclear about that. At this point time will continue with IV diuresis. Strict intake and output chart needs to be pursued. Importance of this was discussed with the patient. Continue Jardiance as well as Entresto therapy. Hold off on beta-sincere therapy given her decompensated status. Continue monitor hemodynamics closely. Continue monitor renal function as well. (2) Wide-complex tachycardia: Status: Acute Assessment and Plan: Wide complex tachycardia with sudden onset and offset with similar QRS complex is most suggestive of atrial tachyarrhythmias or SVT or atrial flutter. Start on amiodarone drip to prevent decompensation related to tachyarrhythmias. Will switch to oral amiodarone. Patient already on oral anticoagulation therapy with Eliquis. No indication for aspirin therapy. Will follow up with you Time Spent With Patient Time: Total time managing care of this patient today ____ minutes. Progress Note: Quality Stroke Does the patient have a stroke diagnosis?: No Procedures Date of Service Date of Service: 09/07/25
[2025-09-07 16:11] LABS: Glucose, Whole Blood 176 mg/dL (60-115)
--- NOTE | 2025-09-07 18:12 | ECG_ITS ---
Test Reason : cp Blood Pressure : */* mmHG Vent. Rate : 98 BPM Atrial Rate : 98 BPM P-R Int : 104 ms QRS Dur : 160 ms QT Int : 414 ms P-R-T Axes : * 43 105 degrees QTcB Int : 528 ms Sinus rhythm with Premature atrial complexes Non-specific intra-ventricular conduction block Abnormal ECG QRS axis Shifted left T wave inversion no longer evident in Inferior leads Referred By: Casa Sandoval Electronically Signed By: MARINE VALDIVIA MD
[2025-09-07 20:36] LABS: Glucose, Whole Blood 182 mg/dL (60-115)
[2025-09-08] VITALS (7 sets, daily range): BP systolic 105–139; BP diastolic 53–71; PULSE 56–84; RESP 16–20; TEMP 36–36.6; O2SAT 88–100
[2025-09-08 07:11] LABS: Glucose, Whole Blood 149 mg/dL (60-115)
[2025-09-08] MEDS: Furosemide 40 MG/4 ML VIAL IVPUSH ×2 (07:39→17:44)
[2025-09-08] MEDS: Sacubitril/Valsartan 24/26 1 TAB TABLET PO ×2 (07:39→20:00)
[2025-09-08] MEDS: Aspirin Enteric Coated 81 MG TABLET.DR PO (07:39)
[2025-09-08] MEDS: 0.9 % Sodium Chloride Flush 3 ML SYRINGE IVFLUSH ×2 (07:40→23:18)
[2025-09-08 08:30] LABS: Hematocrit 34.2 % (37.0-47.0); Hemoglobin 9.0 g/dl (12.0-16.0); Mean Corpuscular HGB Conc 26.3 g/dl (31.0-35.0); Mean Corpuscular Hemoglobin 20.2 pg (27.0-33.0); Mean Corpuscular Volume 76.7 fL (80.0-98.0); NRBC Abs Auto 0.000 X10*3/uL (0.0-0.012); NRBC Pct Auto 0.0 /100WBC (0.0-0.2); Platelet Count 256 X10*3/uL (160-400); Red Blood Count 4.46 X10*6/uL (4.20-5.50); White Blood Count 7.8 X10*3/uL (4.8-10.8)
[2025-09-08 08:47] LABS: Anion Gap 14 (12-20); Blood Urea Nitrogen 20 mg/dL (9-16); Calcium 8.7 mg/dL (8.4-10.2); Carbon Dioxide 26 mmol/L (22-29); Chloride 103 mmol/L (96-108); Creatinine Clr Calc Pharmacy 59.2; Estimated Glomerular Filt Rate 49; Potassium 3.9 mmol/L (3.3-5.1); Sodium 139 mmol/L (135-145)
--- NOTE | 2025-09-08 10:04 | P.PNIM_ITS ---
Subjective Subjective Date of Service: 09/08/25 Interval History: Follow-up on heart failure c/o FERGUSON, no sob, was laying down flat HR is controlled now on amio gtt No further abdominal pain Physical Exam 2 Vital Signs: Vital Signs: Last Vital Signs Temp 97.3 F 09/08/25 07:07 Pulse 78 09/08/25 07:07 Resp 20 09/08/25 07:07 BP 131/71 09/08/25 07:07 Pulse Ox 94 09/08/25 07:07 O2 Del Method Nasal Cannula 09/08/25 07:07 O2 Flow Rate 3 09/08/25 07:07 Oxygen Flow Rate 3 09/05/25 15:52 BMI result Body Mass Index 52.2 Const: Other: General:?Alert, in mild respiratory distress HEENT:?No JVD Cardiac:?Tachycardic, regular rhythm, no murmurs Respiratory:?Wheezing, decreased breath sounds, mildincreased work of breathing, rales at bases Abdomen:?Soft, non-tender Extremities:?2+ pitting edema bilateral lower extremities Neuro:?No focal deficits Objective Data Active Medications Acetaminophen (Acetaminophen 325 Mg Tablet) 650 mg PO Q6H PRN PRN Reason: Pain, Mild 1-3,fever,headache Last Admin: 09/08/25 07:38 Dose: 650 mg Documented By: MONICA Alprazolam (Alprazolam 0.5 Mg Tablet) 0.5 mg PO BID [facility] Last Admin: 09/08/25 07:39 Dose: 0.5 mg Documented By: MONICA Apixaban (Apixaban 5 Mg Tablet) 5 mg PO BID [facility] Last Admin: 09/08/25 07:39 Dose: 5 mg Documented By: MONICA Aspirin (Aspirin Enteric Coated 81 Mg Tablet.) 81 mg PO DAILY [facility] Last Admin: 09/08/25 07:39 Dose: 81 mg Documented By: MONICA Atorvastatin Calcium (Atorvastatin Calcium 10 Mg Tablet) 10 mg PO DAILY [facility] Last Admin: 09/08/25 07:39 Dose: 10 mg Documented By: MONICA Calcium Carbonate (Calcium Carbonate 750 Mg Tab.Chew) 750 mg PO Q4H PRN PRN Reason: Heartburn Dextrose (Dextrose 50 % 25 Gm/50 Ml Syringe) 25 gm IVPUSH Q15M PRN; Protocol PRN Reason: per Hypoglycemia Standing Ord. Empagliflozin (Empagliflozin 10 Mg Tablet) 10 mg PO DAILY [facility] Last Admin: 09/08/25 07:39 Dose: 10 mg Documented By: MONICA Furosemide (Furosemide 40 Mg/4 Ml Vial) 40 mg IVPUSH BID@0900,1800 [facility]; Protocol Last Admin: 09/08/25 07:39 Dose: 40 mg Documented By: MONICA Glucose (Glucose Gel 15 Gm Gel..Gram.) 15 gm PO Q15M PRN; Protocol PRN Reason: per Hypoglycemia Standing Ord. Amiodarone HCl 900 mg/ Sodium (Chloride) 518 mls @ 0 mls/hr IVCONT .Q0M [facility]; Protocol Last Admin: 09/08/25 08:01 Dose: 0.5 mg/min, 17.27 mls/hr Documented By: MONICA Insulin Human Lispro (Insulin Lispro 100 Unit/Ml 3 Ml Vial) 0 unit SUBCUT QIDACHS [facility]; Protocol Last Admin: 09/08/25 07:16 Dose: Not Given Documented By: MONICA Non-Admin Reason: No Insulin Coverage Magnesium Hydroxide (Milk Of Magnesia 30 Ml Oral.Susp) 30 ml PO DAILY PRN PRN Reason: Constipation Melatonin (Melatonin 3 Mg Tablet) 6 mg PO BEDTIME PRN PRN Reason: Insomnia Ondansetron HCl (Ondansetron Hcl 4 Mg/2 Ml Vial) 4 mg IVPUSH Q8H PRN PRN Reason: Nausea and Vomiting Polyethylene Glycol (Polyethylene Glycol 3350 17 Gm Powd.Pack) 17 gm PO DAILY PRN PRN Reason: Constipation Sacubitril/Valsartan (Sacubitril/Valsartan 1 Tab Tablet) 1 tab PO BID [facility]; Protocol Last Admin: 09/08/25 07:39 Dose: 1 tab Documented By: MONICA Sertraline HCl (Sertraline Hcl 25 Mg Tablet) 25 mg PO DAILY [facility] Last Admin: 09/08/25 07:39 Dose: 25 mg Documented By: MONICA Sodium Chloride (0.9 % Sodium Chloride Flush 3 Ml Syringe) [facility] Last Admin: 09/08/25 07:40 Dose: 3 ml Documented By: MONICA Labs 09/08/25 08:07 09/08/25 08:07 Labs: Laboratory Results - last 24 hr 09/07/25 09/07/25 09/07/25 09:49 09:49 10:55 MCV 74.3 L MCH 20.4 L MCHC 27.5 L RDW 21.0 H Plt Count 305 MPV 9.2 L Absolute Nucleated RBC 0.000 Nucleated RBC % (auto) 0.0 Anion Gap 15 Estim Creat Clear Calc 59.2 Estimated GFR 49 POC Glucose 160 H Random Glucose 151 H Lactic Acid 1.3 1.3 Calcium 9.1 09/07/25 09/07/25 09/08/25 16:07 20:24 07:01 MCV MCH MCHC RDW Plt Count MPV Absolute Nucleated RBC Nucleated RBC % (auto) Anion Gap Estim Creat Clear Calc Estimated GFR POC Glucose 176 H 182 H 149 H Random Glucose Lactic Acid Calcium 09/08/25 09/08/25 09/08/25 08:07 08:07 08:07 MCV 76.7 L MCH 20.2 L MCHC 26.3 L RDW 21.0 H Plt Count 256 MPV 9.1 L Absolute Nucleated RBC 0.000 Nucleated RBC % (auto) 0.0 Anion Gap 14 Cancelled Estim Creat Clear Calc 59.2 Cancelled Estimated GFR 49 POC Glucose Random Glucose Lactic Acid Calcium 09/08/25 09/08/25 09/08/25 08:07 08:07 08:07 MCV MCH MCHC RDW Plt Count MPV Absolute Nucleated RBC Nucleated RBC % (auto) Anion Gap Estim Creat Clear Calc Estimated GFR Cancelled POC Glucose Random Glucose 145 H Cancelled Lactic Acid Calcium 8.7 Cancelled Assessment and Plan (1) Congestive heart failure: Status: Acute (2) Diabetes: Status: Acute Plan 70-year-old female with significant cardiopulmonary comorbidities presenting with acute hypoxemia, respiratory distress, and evidence of volume overload (weight gain, lower extremity edema, pulmonary edema on CXR, elevated pro-BNP). She also has electrolyte abnormalities (hyponatremia, hypomagnesemia) and an elevated troponin, likely secondary to demand ischemia in the setting of acute decompensated heart failure and hypoxemia. Plan: Acute on chronic hypoxemic respiratory failure d/t underlying copd and heart failure Supplemental oxygen to maintain SpO? > 92% Monitor for respiratory fatigue or need for higher-level respiratory support Acute decompensated heart failure with reduced ejection fraction of 30% Continue IV Lasix for diuresis, monitor urine output and electrolytes Only showing negative 800? clinically less overoaded Daily weights, strict I/O cardiology evaluation continue Entresto, Jardiance, will ultimately need BB, aldactone Aflutter, HR is better, electrolytes ok continue eliquis, amio drip to be changed to PO 400 bid and discussed further with car COPD no exacerbation Continue home inhalers or Nebs PRn Electrolyte abnormalities Magnesium replacement Monitor sodium and renal function Elevated troponin Likely demand ischemia; monitor for chest pain or ECG changes Cardiology consult if indicated DVT prophylaxis /historyo f PE Continue Eliquis Diabetes and hypertension management Continue home medications as appropriate once med rec done Monitor blood glucose and blood pressure, SSI holding glimeperide and sitagliptin Morbid obesity weight loss advise Abdominal pain CT show no acute finding Headache symptomatic treatment and if persist then CT of head Code status Full code Disposition Admit to Med-tele DVT Prophylaxis: continue Eliquis for history of PE. If anticoagulation is held, initiate mechanical prophylaxis with sequential compression devices (SCDs). Code Status: Full code Indication for Admission: Acute hypoxemic respiratory failure and decompensated heart failure requiring intravenous diuresis, supplemental oxygen, and close monitoring will need at least 2 midnight stay discussed with family at bedside Quality Stroke Does the patient have a stroke diagnosis?: No VTE Prior VTE?: Yes VTE Risk Level:: Medical - moderate - high VTE Device Contraindication: Treatment Not Indicated VTE Drug Contraindication: N/A - Med Ordered
[2025-09-08 11:10] LABS: Glucose, Whole Blood 200 mg/dL (60-115)
--- NOTE | 2025-09-08 11:57 | PM.PNCARD ---
Subjective Subjective Date of Service: 09/08/25 Principal diagnosis: Decompensated systolic heart failure, tachycardia possible atrial flutter Interval history: Patient complains of headache and backache. Says shortness of breath better leg edema is better. No more tachycardia overnight. Does have frequent PACs. Blood pressure is stable. Review of Systems Constitutional: Reports headache(s) Reports headache(s) Cardiovascular: Denies chest pain, Denies rapid heart rate, Reports leg edema, Denies lightheadedness, Denies Loss of Consciousness and Reports dyspnea on exertion Respiratory: Reports dyspnea on exertion Gastrointestinal: Reports no additional gastrointestinal complaints Musculoskeletal: Reports back pain Reports system reviewed and no additional complaints, except as documented and Reports headache(s) Physical Exam Vital Signs: Last Vital Signs Temp 97.3 F 09/08/25 07:07 Pulse 78 09/08/25 07:07 Resp 20 09/08/25 07:07 BP 131/71 09/08/25 07:07 Pulse Ox 94 09/08/25 07:07 O2 Del Method Nasal Cannula 09/08/25 07:07 O2 Flow Rate 3 09/08/25 07:07 Oxygen Flow Rate 3 09/05/25 15:52 BMI result Body Mass Index 52.2 Const General: cooperative, in distress moderate and respiratory, tired appearing and other (Drowsy and drifts off to sleep intermittently) Nutritional Appearance: obese morbidly obese Orientation/consciousness: patient oriented x3 HEENT Head: Yes normocephalic and Yes atraumatic Neck Neck: Yes trachea midline, Yes supple and Yes JVD Resp Effort & Inspection: normal respiratory effort Auscultation: crackles and wheezes Cardio Jugular venous distension: JVD Rate: regular rate Rhythm: regular rhythm Heart sounds: S1 normal heart sound present, S2 normal heart sound present, no click and no gallops GI Auscultation: normal bowel sounds Skin General skin exam: no rashes or lesions noted Neuro General: patient oriented x3 and no focal motor deficits Extrem General: No clubbing, No cyanosis and Yes edema Objective Labs and Meds 09/08/25 08:07 09/08/25 08:07 Lab results: Laboratory Results - last 24 hr 09/07/25 09/07/25 09/08/25 16:07 20:24 07:01 WBC RBC Hgb Hct MCV MCH MCHC RDW Plt Count MPV Absolute Nucleated RBC Nucleated RBC % (auto) Sodium Potassium Chloride Carbon Dioxide Anion Gap BUN Creatinine Estim Creat Clear Calc Estimated GFR POC Glucose 176 H 182 H 149 H Random Glucose Calcium 09/08/25 09/08/25 09/08/25 08:07 08:07 08:07 WBC 7.8 RBC 4.46 Hgb 9.0 L Hct 34.2 L MCV 76.7 L MCH 20.2 L MCHC 26.3 L RDW 21.0 H Plt Count 256 MPV 9.1 L Absolute Nucleated RBC 0.000 Nucleated RBC % (auto) 0.0 Sodium 139 Cancelled Potassium 3.9 Cancelled Chloride 103 Carbon Dioxide Anion Gap BUN Creatinine Estim Creat Clear Calc Estimated GFR POC Glucose Random Glucose Calcium 09/08/25 09/08/25 09/08/25 08:07 08:07 08:07 WBC RBC Hgb Hct MCV MCH MCHC RDW Plt Count MPV Absolute Nucleated RBC Nucleated RBC % (auto) Sodium Potassium Chloride Cancelled Carbon Dioxide 26 Cancelled Anion Gap 14 Cancelled BUN 20 H Creatinine Estim Creat Clear Calc Estimated GFR POC Glucose Random Glucose Calcium 09/08/25 09/08/25 09/08/25 08:07 08:07 08:07 WBC RBC Hgb Hct MCV MCH MCHC RDW Plt Count MPV Absolute Nucleated RBC Nucleated RBC % (auto) Sodium Potassium Chloride Carbon Dioxide Anion Gap BUN Cancelled Creatinine 1.10 Cancelled Estim Creat Clear Calc 59.2 Cancelled Estimated GFR 49 POC Glucose Random Glucose Calcium 09/08/25 09/08/25 09/08/25 08:07 08:07 08:07 WBC RBC Hgb Hct MCV MCH MCHC RDW Plt Count MPV Absolute Nucleated RBC Nucleated RBC % (auto) Sodium Potassium Chloride Carbon Dioxide Anion Gap BUN Creatinine Estim Creat Clear Calc Estimated GFR Cancelled POC Glucose Random Glucose 145 H Cancelled Calcium 8.7 Cancelled 09/08/25 11:04 WBC RBC Hgb Hct MCV MCH MCHC RDW Plt Count MPV Absolute Nucleated RBC Nucleated RBC % (auto) Sodium Potassium Chloride Carbon Dioxide Anion Gap BUN Creatinine Estim Creat Clear Calc Estimated GFR POC Glucose 200 H Random Glucose Calcium Progress Note: A&P Assessment and plan (1) Decompensated heart failure with reduced ejection fraction (HFrEF): Status: Acute Assessment and Plan: Decompensated congestive heart failure, still appears clinically fluid overloaded. Mostly right heart failure syndrome with severely reduced LV ejection fraction. Continue IV diuresis. Continue Entresto therapy and Jardiance therapy. She had a controlled cardiac arrhythmias, see below. Add Coreg 3.125 mg to b.i.d.. Discussed with the nursing staff importance of strict intake and output measurements to guide therapy. Difficult to overall assess because of body habitus to assess fluid status accurately. Continue monitor renal function as well as electrolytes and replace magnesium to above 2. Follow-up BNP tomorrow. (2) Wide-complex tachycardia: Status: Acute Assessment and Plan: Wide complex tachycardia suggestive of atrial flutter with conduction abnormality and aberrancy. Controlled with amiodarone. Switch to amiodarone loading 400 mg b.i.d.. Not unusual for patients with her cardiac situation to have atrial arrhythmias. She is already on Eliquis therapy from before. Will follow with you Time Spent With Patient Time: Total time managing care of this patient today ____ minutes. Progress Note: Quality Stroke Does the patient have a stroke diagnosis?: No Procedures Date of Service Date of Service: 09/08/25
[2025-09-08 12:28] LABS: Appearance Urine Clear; Glucose Urine UA >=1000 mg/dL (Negative); PH 6.0 (5.0-9.0); Specific Gravity - Urine 1.010 (1.005-1.025); UMIC TRIGGER UACC YES
[2025-09-08 15:30] LABS: Glucose, Whole Blood 174 mg/dL (60-115)
[2025-09-08] MEDS: Milk of Magnesia 30 ML ORAL.SUSP PO (20:00)
[2025-09-08 20:47] LABS: Glucose, Whole Blood 136 mg/dL (60-115)
[2025-09-09] VITALS (8 sets, daily range): BP systolic 97–113; BP diastolic 52–62; PULSE 38–54; RESP 18–20; TEMP 36.1–36.5; O2SAT 92–98
--- NOTE | 2025-09-09 04:26 | ECG_ITS ---
Test Reason : rythym change Blood Pressure : */* mmHG Vent. Rate : 70 BPM Atrial Rate : 40 BPM P-R Int : * ms QRS Dur : 166 ms QT Int : 476 ms P-R-T Axes : * 117 84 degrees QTcB Int : 514 ms Junctional bradycardia with PACs Non-specific intra-ventricular conduction block Abnormal ECG When compared with ECG of 07-Sep-2025 18:12, Junctional rhythm with PACs Referred By: Brian Mustafa Electronically Signed By: German Stanton
--- NOTE | 2025-09-09 05:07 | PC.NURSE ---
Addendum entered by Velvet Ibarra RN 09/09/25 05:42: IV Toradol ordered for pain. Labs added on by . Pacer pads at bedside Original Note: Patient was having rhythm changes on tele, was SR now looking junctional escape. MD notified- new oder for EKG undetermined rhythm (see report). At ~5:00am heart rate dropping to mid 30s. Other VSS. Pt only complaint it headache on/off all night, tradmadol admined. refused tylenol. aware and stated will come to bedside.
[2025-09-09 07:16] LABS: Glucose, Whole Blood 180 mg/dL (60-115)
[2025-09-09 08:25] LABS: MANUAL DIFF FLAG NO
[2025-09-09 08:26] LABS: Hematocrit 34.8 % (37.0-47.0); Hemoglobin 9.2 g/dl (12.0-16.0); Imm Gran Abs Auto 0.05 X10*3/uL (0.00-0.03); Imm Gran Pct Auto 0.5 % (0.0-0.4); Lymphocytes Absolute Auto 0.7 X10*3/uL (1.2-4.9); Mean Corpuscular HGB Conc 26.4 g/dl (31.0-35.0); Mean Corpuscular Hemoglobin 20.2 pg (27.0-33.0); Mean Corpuscular Volume 76.3 fL (80.0-98.0); NRBC Abs Auto 0.000 X10*3/uL (0.0-0.012); NRBC Pct Auto 0.0 /100WBC (0.0-0.2); Platelet Count 258 X10*3/uL (160-400); Red Blood Count 4.56 X10*6/uL (4.20-5.50); White Blood Count 9.9 X10*3/uL (4.8-10.8)
[2025-09-09 08:42] LABS: Blood Urea Nitrogen 25 mg/dL (9-16); Calcium 8.7 mg/dL (8.4-10.2); Creatinine Clr Calc Pharmacy 43.7; Estimated Glomerular Filt Rate 35; Magnesium 2.2 mg/dL (1.6-2.6)
[2025-09-09 08:51] LABS: Anion Gap 14 (12-20); Carbon Dioxide 27 mmol/L (22-29); Chloride 101 mmol/L (96-108); Potassium 5.0 mmol/L (3.3-5.1); Sodium 137 mmol/L (135-145)
[2025-09-09] MEDS: Sacubitril/Valsartan 24/26 1 TAB TABLET PO (09:08)
[2025-09-09] MEDS: 0.9 % Sodium Chloride Flush 3 ML SYRINGE IVFLUSH (09:09)
[2025-09-09] MEDS: Aspirin Enteric Coated 81 MG TABLET.DR PO (09:09)
[2025-09-09 11:18] LABS: Glucose, Whole Blood 162 mg/dL (60-115)
--- NOTE | 2025-09-09 12:41 | ECG_ITS ---
Test Reason : CK RHYTHM Blood Pressure : */* mmHG Vent. Rate : 45 BPM Atrial Rate : * BPM P-R Int : * ms QRS Dur : 158 ms QT Int : 538 ms P-R-T Axes : * 127 108 degrees QTcB Int : 465 ms Junctional rhythm Non-specific intra-ventricular conduction block Right ventricular hypertrophy Cannot rule out Septal infarct , age undetermined Abnormal ECG When compared with ECG of 09-Sep-2025 04:28, Junctional rhythm Referred By: Luli Stevenson Electronically Signed By: German Stanton
--- NOTE | 2025-09-09 12:58 | P.PNCA_ITS ---
Subjective Subjective Date of Service: 09/09/25 Principal diagnosis: Decompensated systolic heart failure, tachycardia possible atrial flutter Interval history: Seen and examined at bedside. The patient was admitted for heart failure with reduced ejection fraction. She was in atrial flutter but it appears she is in sinus bradycardia this morning with heart rates 40s to 50s. She was feeling tired but did not have any presyncope/syncope. Denying any chest discomfort. On supplemental oxygen. Physical Exam Vital Signs: Last Vital Signs Temp 97.6 F 09/09/25 11:07 Pulse 50 09/09/25 11:07 Resp 20 09/09/25 11:07 BP 97/52 L 09/09/25 09:19 Pulse Ox 98 09/09/25 11:07 O2 Del Method Nasal Cannula 09/09/25 11:07 O2 Flow Rate 3 09/09/25 11:07 Oxygen Flow Rate 3 09/05/25 15:52 BMI result Body Mass Index 52.2 GENERAL APPEARANCE: Morbidly obese. Not short of breath. On supplemental oxygen. NECK: no carotid bruit, mild jugular venous distention. SKIN: no suspicious lesions, warm and dry. HEART: no murmurs, regular rate and rhythm. Bradycardic. LUNGS: clear to auscultation bilaterally. ABDOMEN: soft, nontender. EXTREMITIES: + edema. PERIPHERAL PULSES: equal. NEUROLOGIC: No gross deficits, AAO X 3 Objective Labs and Meds 09/09/25 08:14 09/09/25 08:14 Lab results: Laboratory Results - last 24 hr 09/08/25 09/08/25 09/09/25 15:17 20:40 06:59 WBC RBC Hgb Hct MCV MCH MCHC RDW Plt Count MPV Immature Gran % (Auto) Neut % (Auto) Lymph % (Auto) [place] % (Auto) Eos % (Auto) Baso % (Auto) Lymph # (Auto) [place] # (Auto) Eos # (Auto) Baso # (Auto) Abs Immat Gran (auto) Absolute Neuts (auto) Absolute Nucleated RBC Nucleated RBC % (auto) Sodium Potassium Chloride Carbon Dioxide Anion Gap BUN Creatinine Estim Creat Clear Calc Estimated GFR POC Glucose 174 H 136 H 180 H Random Glucose Calcium Magnesium 09/09/25 09/09/25 08:14 11:06 WBC 9.9 RBC 4.56 Hgb 9.2 L Hct 34.8 L MCV 76.3 L MCH 20.2 L MCHC 26.4 L RDW 20.5 H Plt Count 258 MPV 9.2 L Immature Gran % (Auto) 0.5 H Neut % (Auto) 86.2 H Lymph % (Auto) 7.2 L [place] % (Auto) 5.4 Eos % (Auto) 0.1 Baso % (Auto) 0.6 Lymph # (Auto) 0.7 L [place] # (Auto) 0.5 Eos # (Auto) 0.0 Baso # (Auto) 0.1 Abs Immat Gran (auto) 0.05 H Absolute Neuts (auto) 8.5 H Absolute Nucleated RBC 0.000 Nucleated RBC % (auto) 0.0 Sodium 137 Potassium 5.0 D Chloride 101 Carbon Dioxide 27 Anion Gap 14 BUN 25 H Creatinine 1.49 H Estim Creat Clear Calc 43.7 Estimated GFR 35 POC Glucose 162 H Random Glucose 176 H Calcium 8.7 Magnesium 2.2 Progress Note: A&P Assessment and plan (1) Congestive heart failure: Status: Acute (2) Wide-complex tachycardia: Status: Acute (3) Bradycardia: Status: Acute Plan [age] year female who is visiting from [place] to see her daughter who was admitted in ICU. She apparently developed sudden-onset shortness of breath when she was seeing her and was admitted for congestive heart failure. She was noted to be in wide complex tachycardia which was thought to be related to atrial flutter with aberrancy. Initial QRS morphology appeared to be like left bundle- branch block. Echocardiography confirmed severe LV dysfunction with EF of 30s. She had known cardiomyopathy based on discussion with the family and was advised to get an ICD in [place]. Details are unclear because we do not have any records. She was on amiodarone for atrial flutter and apparently converted to sinus rhythm and subsequently developed sinus bradycardia slowly into 50s today. She was on amiodarone loading dose of 400 mg twice a day. She was also given carvedilol 3.125 mg with the morning dose held today. Her initial rhythm was sinus bradycardia but currently telemetry is showing junctional rhythm in 50s. I have discussed with the patient and her family that we need to transferred to [facility] for further assessment and potential pacemaker placement. Given LV dysfunction I think she will probably require [employer]IL[employer] TECHNICIAN-D. I will hold her medications including carvedilol, Entresto, amiodarone and Jardiance. I think we should also hold the evening dose of Eliquis. She is accepted by the CCU team at [facility] (Dr Ricardo Ponce) and we will transfer her urgently there for further assessment and potential pacemaker placement. Thank you for allowing me to participate in the care of your patient. Please feel free to contact me if you have any questions. Time Spent With Patient Time: Total time managing care of this patient today 60 minutes. Progress Note: Quality Stroke Does the patient have a stroke diagnosis?: No Procedures Date of Service Date of Service: 09/09/25
--- NOTE | 2025-09-09 14:34 | P.DS_ITS ---
DS: Providers Provider Date of Service: 09/09/25 Date of admission: 09/05/25 18:12 Date of discharge: 09/09/25 Primary care physician: Unknown Physician Consults: 09/05/25 18:53 Consult to Cardiology Routine Consulting Provider: [facility] Reason for consultation: heart failure Has provider been notified: Yes DS: Diagnosis Discharge Diagnosis (1) Congestive heart failure: Status: Acute (2) Wide-complex tachycardia: Status: Acute (3) Bradycardia: Status: Acute DS: Summary Hospital Course Hospital Course: 70-year-old female with significant cardiopulmonary comorbidities presenting with acute hypoxemia, respiratory distress, and evidence of volume overload (weight gain, lower extremity edema, pulmonary edema on CXR, elevated pro-BNP). She also has electrolyte abnormalities (hyponatremia, hypomagnesemia) and an elevated troponin, likely secondary to demand ischemia in the setting of acute decompensated heart failure and hypoxemia. PRESENTATION 70-year-old female with a history of COPD (on baseline 3L nasal cannula), congestive heart failure (on Lasix 40 mg daily), prior pulmonary embolism (on Eliquis), hypertension, type 2 diabetes mellitus, and hyperlipidemia, presented as a rapid response while visiting her sick daughter in the ICU. Her oxygen supply ran out, and she was found to be wheezing, coughing, and tachycardic, with oxygen saturation of 78%. She was transferred to the emergency department for further evaluation after an BR[facility]GE [facility]ELDER. The patient reported baseline shortness of breath but denied chest pain. She noted a 22-pound weight gain over the past six weeks and increased lower extremity swelling. Emergency department workup revealed sodium 133, magnesium 1.5, troponin I 24, pro-BNP 4806, and creatinine 1.004. Chest X-ray showed pulmonary edema. ECG demonstrated sinus tachycardia without acute ischemic changes. In the ED, she was treated with intravenous Lasix and magnesium replacement. PROBLEM LIST Acute on chronic hypoxemic respiratory failure Acute exacerbation CHFrEF 30% Elevated troponin-suspected type 2 demand ischemia Non infective COPD exacerbation Supplemental oxygen to maintain SpO2 > 92% Continue IV Lasix for diuresis, monitor urine output and electrolytes Objecticvely less overloaded compared to past few days. Daily weights, strict I/O Elevated troponin with suspected to be 2/2 demand ischemia. Further evaluation for possible type 1 ischemic event at [facility] with cardiac catheterization versus coronary angiography Cardiology evaluation requested. Continue Entresto, Jardiance, will ultimately need BB, aldactone BB on hold currently due to bradycardia and hypotension. AFlutter Sinus Bradycardia Patient suffered with atrial flutter during admission. Placed on amiodarone drip and transitioned to 400 mg b.i.d. p.o.. Unfortunately, patient suffered with a sinus bradycardia has resolved, with hypotension. Cardiology consulted, recommending transfer to [facility] for further evaluation for need for PPM placement/ electrophysiological evaluation Continue apixaban COPD no exacerbation Continue home inhalers / Nebs PRn Electrolyte abnormalities Magnesium replacement History of pulmonary embolism Continue apixaban Type II DM Continue home medications as appropriate once med rec done Monitor blood glucose and blood pressure, SSI holding glimeperide and sitagliptin Status at Discharge Cognitive/behavioral status at discharge: Transferring to facility - [facility] Time Attestation Total time managing care of this patient today: 45 mintues. Discharge Coordination Time (in mins): 60 Quality: Safe Use of Opioids Does Pt have an Active Cancer Diagnosis on the Problem List?: No Quality: Stroke Does the patient have a stroke diagnosis?: No Physical Exam Exam: Exam: General: A&O x3, oriented to time place person and situation, comfortable, no pain Cardiac: S1, S2 auscultated with no S3/4, no MRG. Bradycardic, well-perfused, hypotensive. Respiratory: Normal breath sounds auscultated throughout all lung zones, without wheezing, rales. Normal rate. GI/ : No abdominal pain on palpation, no masses or distentions. MSK: Normal ambulation without pain at bony prominences or musculature Neurological: Normal neurological examination on overview, without obvious CN II-XII abnormalities. Vital Signs: Vital Signs: Last Vital Signs Temp 97.6 F 09/09/25 11:07 Pulse 50 09/09/25 11:07 Resp 20 09/09/25 11:07 BP 97/52 L 09/09/25 09:19 Pulse Ox 98 09/09/25 11:07 O2 Del Method Nasal Cannula 09/09/25 11:07 O2 Flow Rate 3 09/09/25 11:07 Oxygen Flow Rate 3 09/05/25 15:52 BMI result Body Mass Index 52.2 DS: Data Data Completed and Pending Labs on day of discharge: Laboratory Results - last 24 hr 09/08/25 09/08/25 09/09/25 15:17 20:40 06:59 WBC RBC Hgb Hct MCV MCH MCHC RDW Plt Count MPV Immature Gran % (Auto) Neut % (Auto) Lymph % (Auto) [place] % (Auto) Eos % (Auto) Baso % (Auto) Lymph # (Auto) [place] # (Auto) Eos # (Auto) Baso # (Auto) Abs Immat Gran (auto) Absolute Neuts (auto) Absolute Nucleated RBC Nucleated RBC % (auto) Sodium Potassium Chloride Carbon Dioxide Anion Gap BUN Creatinine Estim Creat Clear Calc Estimated GFR POC Glucose 174 H 136 H 180 H Random Glucose Calcium Magnesium 09/09/25 09/09/25 08:14 11:06 WBC 9.9 RBC 4.56 Hgb 9.2 L Hct 34.8 L MCV 76.3 L MCH 20.2 L MCHC 26.4 L RDW 20.5 H Plt Count 258 MPV 9.2 L Immature Gran % (Auto) 0.5 H Neut % (Auto) 86.2 H Lymph % (Auto) 7.2 L [place] % (Auto) 5.4 Eos % (Auto) 0.1 Baso % (Auto) 0.6 Lymph # (Auto) 0.7 L [place] # (Auto) 0.5 Eos # (Auto) 0.0 Baso # (Auto) 0.1 Abs Immat Gran (auto) 0.05 H Absolute Neuts (auto) 8.5 H Absolute Nucleated RBC 0.000 Nucleated RBC % (auto) 0.0 Sodium 137 Potassium 5.0 D Chloride 101 Carbon Dioxide 27 Anion Gap 14 BUN 25 H Creatinine 1.49 H Estim Creat Clear Calc 43.7 Estimated GFR 35 POC Glucose 162 H Random Glucose 176 H Calcium 8.7 Magnesium 2.2 Discharge Plan Discharge Anticipated Discharge Date/Time: 09/09/25 14:34 Patient Disposition: Xfer Acute Care Hospital Discharge Diagnosis: Acute hypoxic respiratory failure 2/2 CHF exacerbation and non infective Referrals: Physician,Unknown J [Primary Care Provider, Medical] - 1 Week Discharge Medications: Continued furosemide [Lasix] 40 mg Tablet 40 mg PO BID hydralazine 10 mg Tablet 60 mg PO BID alprazolam [Xanax] 0.5 mg Tablet 0.5 mg PO BID simvastatin 20 mg Tablet 20 mg PO DAILY glimepiride 4 mg Tablet 4 mg PO BID sertraline [Zoloft] 25 mg Tablet 25 mg PO DAILY aspirin 81 mg Tablet 81 mg PO DAILY losartan 100 mg Tablet 100 mg PO DAILY Janumet 50-1,000 mg Tablet 1 tab PO BID Eliquis 5 mg Tablet 5 mg PO BID Discharge Orders: Discharge Order (Routine); Ordered 09/09/25 Ordered By: Luli Stevenson Activity on Discharge: As tolerated Stand Alone Forms: Patient Portal Discharge page Print Language: Croatian Care Plan Goals: Transfer to [facility] Health Concerns: Transfer to [facility] Plan of Treatment: Transfer to [facility] for continued management; - Investigation of possible ischemic event - Cardio Electrophysiological assessment Assessment: Transfer to [facility]
[2025-09-09 16:03] LABS: Glucose, Whole Blood 126 mg/dL (60-115)
--- NOTE | 2025-09-09 16:34 | MHC.CM.PN ---
PT BEING TRANSFERRED TO [facility]
== END 2025-09-09 17:19 | disposition short-term general hospital (02) | DRG 291 ==
LOC: HO.ED 18:18 → HO.EDOVER 18:21 → HO.IMC 21:32
PROVIDERS: Hospitalist; Registered Nurse Emergency; Admitting Provider Internal Medicine; Emergency Provider Emergency Medicine; Visit Provider Hospitalist
DX: I11.0 Hypertensive heart disease with heart failure (principal); I50.23 Acute on chronic systolic (congestive) heart failure; J96.21 Acute and chronic respiratory failure with hypoxia; Z68.43 Body mass index [BMI] 50.0-59.9, adult; I48.92 Unspecified atrial flutter; I24.89 Other forms of acute ischemic heart disease; E87.1 Hypo-osmolality and hyponatremia; E11.9 Type 2 diabetes mellitus without complications; E83.42 Hypomagnesemia; E66.01 Morbid (severe) obesity due to excess calories; R00.0 Tachycardia, unspecified; Z71.3 Dietary counseling and surveillance; J44.9 Chronic obstructive pulmonary disease, unspecified; Z86.711 Personal history of pulmonary embolism; Z99.81 Dependence on supplemental oxygen; Z79.01 Long term (current) use of anticoagulants; Z79.82 Long term (current) use of aspirin; Z79.84 Long term (current) use of oral hypoglycemic drugs; Z79.899 Other long term (current) drug therapy
CPT/HCPCS: 36415; 71046; 74176; 80048; 80053; 81001; 82803; 82947; 83605; 83690; 83735; 83880; 84484; 85025; 85027; 85610; 93005; 93306; 94640; 99285; J0282; J1885; J1938; J3475; Q9957

== ENCOUNTER → 2025-09-05 15:58 | Outpatient (BNV) | payer MEDICARE, SELFPAY | PROVIDERS: Emergency Provider Emergency Medicine; Visit Provider Radiology Diagnostic Ultrasound | DX: R06.00 Dyspnea, unspecified (principal); R00.0 Tachycardia, unspecified | CPT/HCPCS: 71046 ==

== ENCOUNTER → 2025-09-05 15:58 | Outpatient (BNV) | payer MEDICARE, SELFPAY | PROVIDERS: Admitting Provider Internal Medicine; Emergency Provider Emergency Medicine; Visit Provider Internal Medicine Cardiovascular Disease | DX: R00.0 Tachycardia, unspecified (principal); I44.7 Left bundle-branch block, unspecified | CPT/HCPCS: 93010 ==

== ENCOUNTER 2025-09-05 18:12 | Outpatient (BNV) | payer MEDICARE, SELFPAY | END 2025-09-06 07:00 | PROVIDERS: Admitting Provider Internal Medicine; Emergency Provider Emergency Medicine; Visit Provider Internal Medicine Cardiovascular Disease | DX: I27.20 Pulmonary hypertension, unspecified (principal); I51.7 Cardiomegaly | CPT/HCPCS: 93306 ==

== ENCOUNTER 2025-09-05 18:12 | Outpatient (BNV) | payer MEDICARE, SELFPAY | END 2025-09-07 07:52 | PROVIDERS: Admitting Provider Internal Medicine; Emergency Provider Emergency Medicine; Visit Provider Internal Medicine Cardiovascular Disease | DX: I45.4 Nonspecific intraventricular block (principal) | CPT/HCPCS: 93010 ==

== ENCOUNTER 2025-09-05 18:12 | Outpatient (BNV) | payer MEDICARE, SELFPAY | END 2025-09-09 12:41 | PROVIDERS: Admitting Provider Internal Medicine; Emergency Provider Emergency Medicine; Visit Provider Internal Medicine Cardiovascular Disease | DX: I45.4 Nonspecific intraventricular block (principal) | CPT/HCPCS: 93010 ==

== ENCOUNTER 2025-09-05 18:12 | Outpatient (BNV) | payer MEDICARE, SELFPAY | END 2025-09-07 09:28 | PROVIDERS: Admitting Provider Internal Medicine; Emergency Provider Emergency Medicine; Visit Provider Radiology Diagnostic Radiology | DX: R10.9 Unspecified abdominal pain (principal); Z90.49 Acquired absence of other specified parts of digestive tract | CPT/HCPCS: 74176 ==

== ENCOUNTER → 2025-09-05 18:12 | Outpatient (BNV) | payer MEDICARE, SELFPAY | PROVIDERS: Admitting Provider Internal Medicine; Emergency Provider Emergency Medicine; Visit Provider Internal Medicine | DX: I50.9 Heart failure, unspecified (principal); R00.0 Tachycardia, unspecified; R00.1 Bradycardia, unspecified | CPT/HCPCS: 99223; 99232; 99233; 99239 ==

== ENCOUNTER → 2025-09-05 18:12 | Outpatient (BNV) | payer MEDICARE, SELFPAY | PROVIDERS: Admitting Provider Internal Medicine; Emergency Provider Emergency Medicine; Visit Provider Internal Medicine Cardiovascular Disease | DX: I50.9 Heart failure, unspecified (principal); R00.0 Tachycardia, unspecified; R00.1 Bradycardia, unspecified | CPT/HCPCS: 99233 ==